=== PATIENT | female | born 1975 | race Caucasian/White ===

== ENCOUNTER 2017-01-01 15:57 | Inpatient (IN) | payer OTHER, MEDICARE ==
[~2017-01-01] VITALS: Ht 147.3 cm; Wt 44.2 kg
[2017-01-01] VITALS (7 sets, daily range): BP systolic 82–158; BP diastolic 34–106; PULSE 73–136; RESP 10–25; O2SAT 94–99
[~2017-01-01 15:57] MED LIST: HYDROMORPHONE PR; IBUP200C PO; KLO1T PO; MIRT30TA6 PO; NORT25CA PO; ONDA8TAB10 PO; POTA10TA12 PO
[2017-01-01] MEDS ORDERED: Promethazine Inj 25 MG in Dextrose 5%-Pha MIX 50 ML IV ONE (17:00)
[2017-01-01] MEDS ORDERED: HYDROmorphone 1 mg/mL Inj IVPUSH ONE (17:00)
[2017-01-01] MEDS ORDERED: Ondansetron 2 mg/mL 2 mL Inj IVPUSH ONE (17:00)
[2017-01-01 17:46] LABS: BASOPHILS % (AUTO) 0.3 % (0-3)
[2017-01-01 18:29] LABS: EOSINOPHILS % (AUTO) 0.1 % (0-5); MONOCYTES % (AUTO) 9.1 % (4-12); Mean Corpuscular Hemoglobin 28.3 pg (27.0-35.0); Mean Corpuscular Volume 77.5 fL (81-100); Platelet Count 337 bil/L (150-400)
[2017-01-01 18:54] LABS: Magnesium 2.7 mg/dL (1.6-2.6)
[2017-01-01] MEDS ORDERED: 0.9% Sodium Chloride 1,000 ML IV ONE (19:35)
--- NOTE | 2017-01-01 20:21 | ED.REPORT ---
HPI-Abd Pain F 40 and Over Date of Service Jan 01, 2017 ED Provider: Axel Little MD 41 year old female with a history of cyclic vomiting presents to the ER complaining of 15 days of hyperemesis. Patient called her hydration clinic and was referred to the ER for renal failure assessment. Associated symptoms include subjective fever, abdominal pain, and severe muscle cramping. Patient denies diarrhea. Nursing Notes Stated Complaint: VOMITING, CRAMPING Chief Complaint: General Complaint Nursing Notes Reviewed: Yes Allergies: Coded Allergies: capsaicin (Verified Allergy, Severe, Hives, 01/01/17) Scheduled Mirtazapine (Mirtazapine) 30 Mg Tablet 30 MG PO HS Nortriptyline (Nortriptyline) 25 Mg Capsule 25 MG PO QPM Scheduled PRN Clonazepam (Clonazepam) 2 Mg Tablet 2 MG PO HS PRN PRN For Sleep Hydromorphone Supp (Hydromorphone Supp) 3 Mg Supp.rect 3 MG [place] DAILY PRN PRN For Nausea Ibuprofen (Ibuprofen) 800 Mg Tablet 800 MG PO TID PRN PRN For Pain Ondansetron ODT (Ondansetron ODT) 8 Mg Tab.rapdis 8 MG PO q8 hours PRN PRN For Nausea General Time Seen by MD: 20:19 Chief Complaint Vomiting severe Hx Obtained From: Patient Arrived By: Walk-in Sudden in Onset?: No Onset Occurred: More than a week ago... (2 weeks) Symptom Duration: Since onset Progression since Onset: Unchanged Location: : Diffuse Quality: Cramping Severity: Current: Moderate Severity: Maximum: Moderate Associated with: Reports: Chills, Fever Recent Healthcare: Recent doctor visit Similar Sx Previous: Yes Past Medical History Past Medical History cyclic vomiting syndrome Past Surgical History epistaxis surgery breast augmentation Reports: Appendectomy, Smoking History Former Smoker Social History Alcohol Use: Denies alcohol use Drug Use: Denies drug use Other Social History: Ambulatory Status Independent Review of Systems +Muscle Cramping Constitutional: Reports: Fever (subjective) Respiratory: Denies: Non-productive cough, Shortness of breath GI: Reports: Abdominal pain, Nausea, Vomiting, Denies: Diarrhea Musculoskeletal: Reports: Extremity pain Complete sys rev & neg: except as marked. Physical Exam Vital Signs Vital Signs (First) Date Time Temp Pulse Resp B/P Pulse Ox O2 Delivery O2 Flow Rate FiO2 01/01/17 16:04 35.7 136 22 82/34 96 Room Air Initial VS: Reviewed Head / Eyes: Atraumatic, Normocephalic Neck: Supple, Non-tender, Full range of motion Extremities: Vascular intact, Neuro intact, No swelling, No tenderness Neurologic: Alert, Oriented, Nonfocal General/Constitutional: Awake, Alert, Well developed Appearance / Presentation: Positive: Cachectic Respiratory / Chest: Breath sounds NL, Breath sounds = bilat, No respiratory distress, No rales, No rhonchi, No wheezing, No stridor Cardiovascular: Heart rate NL, Regular rhythm, Heart sounds NL, Peripheral circulation NL Abdomen: Soft, Non-tender, No guarding, No rebound, No distention Back: Inspection NL, Non-tender, No CVA tenderness ENT: Airway patent Mouth: Positive: Mucous membranes dry Interpretation & Diagnostics Lab Results Interpretation Result Diagram: 01/01/17 1711 01/01/17 1812 Test 01/01/17 17:11 01/01/17 18:12 White Blood Count 18.9th/mm3 (3.8-10.1) Red Blood Count 6.44mil/mm3 (3.90-5.20) Hemoglobin 18.2g/dL (12.0-15.6) Hematocrit 49.9% (35.0-46.0) Mean Corpuscular Volume 77.5fL (81-100) Mean Corpuscular Hemoglobin 28.3pg (27.0-35.0) Mean Corpuscular Hemoglobin Concent 36.5% (32.0-37.0) Red Cell Distribution Width 14.6% (12.3-15.4) Platelet Count 337bil/L (150-400) Neutrophils (%) (Auto) 76.0% (40-74) Lymphocytes (%) (Auto) 13.8% (14-46) Monocytes (%) (Auto) 9.1% (4-12) Eosinophils (%) (Auto) 0.1% (0-5) Basophils (%) (Auto) 0.3% (0-3) Hold Purple Top Tube Received (Received) Hold Blue Top Tube Received (Received) Hold [place] Top Tube Received (Received) Sodium Level 128mEq/L (134-144) Potassium Level 2.8mEq/L (3.5-5.2) Chloride Level 81mEq/L (97-108) Carbon Dioxide Level 22mmol/L (18-29) Blood Urea Nitrogen 64mg/dL (6-24) Creatinine 2.94mg/dL (0.57-1.00) Estimat Glomerular Filtration Rate 25mL/min (>59) Glucose Level 121mg/dL (60-99) Calcium Level 9.1mg/dL (8.5-10.1) Magnesium Level 2.7mg/dL (1.6-2.6) Total Bilirubin 0.5mg/dL (0.0-1.2) Aspartate Amino Transf (AST/SGOT) 13U/L (0-50) Alanine Aminotransferase (ALT/SGPT) 11U/L (0-32) Alkaline Phosphatase 90U/L (25-150) Total Protein 8.4g/dL (6.4-8.4) Albumin 4.7g/dL (3.4-5.0) Lipase 39U/L (13-60) Hold [place] Top Tube Received (Received) Re-Eval/Medical Decision Source of Hx: Old records Re-Evaluation/Progress : Time of Eval: 20:25 Re-Evaluation/Progress Note: Discussed lab results and need for admission. Patient is amenable to the plan. All other questions addressed. Consultation : Referral / Consult Name: Thais Omer DO Consulted With: Hospitalist Call Returned at: 20:56 Plate Corrector: Agrees with eval, Agrees with plan, Accepts admit Counseled Regarding: Diagnosis, Lab results, Need for admission Discharge & Departure Primary Impression: Acute kidney injury Additional Impressions: Cyclic vomiting syndrome Severe dehydration Disposition: ADMITTED TO HOSPITAL Discharge Condition All VS Reviewed: Yes Condition: Stable Referrals: Perla Oh DO (PCP) Bhavesh Attestation Portions of this note were transcribed by Hector Santoyo. I, Dr. Little, personally performed the history, physical exam and medical decision-making; I reviewed and confirmed the accuracy of the information in the transcribed note. Signed by: Bhavesh Resendez, 01/01/2017 and 20:59 copies to: Perla Oh Kirk H MD Jan 01, 2017 20:20 HECTOR SANTOYO Jan 01, 2017 20:27
[2017-01-01] MEDS ORDERED: [UNRECOGNIZED DRUG - CODE] PR (20:50)
[2017-01-01] MEDS ORDERED: IBUP800T28 PO (20:50)
[2017-01-01] MEDS ORDERED: KLO2T PO (20:50)
[2017-01-01] MEDS: HYDROmorphone 1 mg/mL Inj IVPUSH PRN (21:20)
[2017-01-01] MEDS ORDERED: Ondansetron 2 mg/mL 2 mL Inj IVPUSH PRN ×2 (21:20→22:55)
[2017-01-01] MEDS ORDERED: Polyethylene Glycol (PEG) 17 Gm Powder PO PRN ×2 (21:20→22:55)
[2017-01-01] MEDS ORDERED: Alum-Mag Hydrox-Simeth 30 mL Suspension PO PRN ×2 (21:20→22:55)
[2017-01-01 22:50] LABS: Magnesium 2.7 mg/dL (1.6-2.6)
[2017-01-01] MEDS ORDERED: KCl 40 mEq/D5W 500 mL 20 MEQ in IV Premix 1 EACH IV ONE (22:55)
[2017-01-01] MEDS ORDERED: MULT-140 PO (23:26)
[2017-01-01] MEDS ORDERED: METO5SOL PO (23:26)
[2017-01-01] MEDS ORDERED: UBID200C31 PO (23:26)
[2017-01-01 23:39] LABS: APPEARANCE,URINE HAZY (CLEAR,HAZY); COLOR,URINE YELLOW (YELLOW); OCCULT BLOOD,URINE TRACE (NEGATIVE); PH,URINE 5.5 (5.0-8.0); UROBILINOGEN,URINE NORMAL (NORMAL)
[2017-01-02] MEDS: HYDROmorphone 1 mg/mL Inj IVPUSH PRN ×5 (00:14→23:06)
[2017-01-02] MEDS: 0.9% Sodium Chloride 1,000 ML IV SCH ×2 (00:15→08:48)
[2017-01-02 01:12] VITALS: BP 106/71; PULSE 65; RESP 14; O2SAT 97
--- NOTE | 2017-01-02 01:35 | PCM.HPMED ---
Subjective Date of Service Jan 01, 2017 Primary Provider: Admitting Physician: Thais Omer DO Primary Care Physician: Perla Oh DO Attending Physician: Thais Omer DO Admit Status: From the Emergency Department Chief Complaint: nausea and vomiting History of Present Illness: 41-year-old female patient with a history of cyclic vomiting syndrome presented to the ER with complaints of intractable nausea and vomiting for the past 14 days. Patient reports that over the past 14 days her nausea and vomiting has been worsening, and then when she woke up this morning it was the worst it has been. Patient is a poor historian, and does not answer most questions regarding past medical history. Patient is unable to discuss/mention any triggers for her nausea vomiting, or anything that improves or worsens her nausea and vomiting. Patient is also unable to describe her vomiting. Patient reports myalgias, nausea, vomiting, fatigue. Patient denies fevers, chills, diarrhea, abdominal pain, chest pain or shortness of breath. Patient denies any dysuria or hematuria. Patient denies any palpitations. Vital signs in the ER as follows, temperature 35.7, pulse 136, respiratory rate 22, blood pressure 82/34, pulse ox 96. Review of Systems: A limited review of systems was conducted with the patient and found to be negative except as above in the History of Present Illness. Difficult to obtain secondary to patient's mentation. Allergies Coded Allergies: capsaicin (Verified Allergy, Severe, Hives, 01/01/17) Home Medications Hydromorphone 3 mg rectal suppository Ibuprofen 800 mg 3 times a day Mirtazapine 30 mg daily at bedtime Nortriptyline 25 mg daily PMH Cyclic vomiting syndrome Epistaxis Mitochondrial disease Cluster headaches History of hypokalemia Depression and anxiety Aspiration pneumonia Surgical History Port-A-Cath placement 2016 Rhinoplasty Tonsillectomy Appendectomy Breast augmentation Dental implants IUD placement Family History Mother-breast cancer Father-diabetes Brother and sister-diabetes Family history of depression, anxiety, alcohol abuse Social History Occupation: on disability Hx Alcohol Use: No Hx Substance Use: Yes (occassional marijuana) Hx Tobacco Use: No Smoking Status: Former Smoker Living Arrangement: with Family Exam Vital Signs Vital Sign - Last Date Time Temp Pulse Resp B/P Pulse Ox O2 Delivery O2 Flow Rate FiO2 01/01/17 21:35 74 01/01/17 21:34 36.3 16 103/74 96 01/01/17 21:21 Room Air Exam General: Thin and frail female supine on med. No acute distress HEENT: Normocephalic, atraumatic. External ears without defect. Pupils equal, round, and reactive to light and accommodation. Moist conjunctivae. Oropharynx with moist mucosa. Neck: Supple with full range of motion.No lymphadenopathy Cardiovascular: Regular rate and rhythm with no murmurs, rubs, or gallops appreciated Pulmonary: Clear to auscultation bilaterally with no crackles, wheezes, or rhonchi. Normal respiratory effort with no use of accessory muscles. Abdomen: Bowel tones present. Soft, nontender, nondistended. Extremities: No clubbing, cyanosis, edema, appreciated. Skin: Port a cath on left side of chest. Normal temperature, turgor, and texture ; no rash, ulcers, or subcutaneous nodules appreciated. Psychiatric: Forgetful, tangential thinking at times but can be re-directed. Lab and Diagnostics Result Diagram: 01/01/17 1711 01/01/17 2217 X-Rays, CTs and MRIs Brain CT without contrast ordered--No results available Assessment & Plan 41-year-old female patient with a history of cyclic vomiting syndrome presented to the ER with complaints of intractable nausea and vomiting for the past 14 days. Intractable nausea and vomiting, in the setting of chronic cyclic vomiting syndrome, present on admission, ongoing -Pt has long history of cyclic vomiting syndrome, possible connected to marijuana usage -Pt has been seen by GI outpatient, do not feel consult warranted at this time. hx of multiple colonoscopies and EGDs with no concerning results. -Treating with zofran and fluids -Continue to monitor Acute kidney injury likely secondary to dehydration, present on admission, ongoing -No recorded history of CKD in outpatient records -Cr on admission 2.95, improved slightly to 2.45 with hydration -Continue with gentle hydration of NS 100mls/hr -Continue to monitor labs Acute hypokalemia likely secondary to dehydration, present on admission, ongoing -Initially 2.8 on presentation, improved to 3.3 with hydration -Started KCL IV 20meq, however this was discontinued due to concern with Cr -Consider K-Dur or IV KCL if potassium continues to decline -Labs at 2am to reassess -AM labs Acute hyponatremia likely secondary to dehydration, present on admission, ongoing -Initially 128, improved to 132 with hydration -Labs at 2am to reassess -AM labs Acute altered mental status, chronicity unknown, present on admission, ongoing -Unclear of patient's baseline mentation, no family present at bedside. -Pt was poor historian -CT brain without contrast ordered to assess for causes, s/p recent GLF -Day team to consider LP if worsening or continued confusion -Possible causes include confusion secondary to electrolyte abnormalities and dehydration -Utox ordered to assess for possible chemical explanation for the mentation -Continue to monitor closely Acute leukocytosis etiology unknown, present on admission. ongoing -WBC of 18.9, 76%pmns with no identifiable source -Pt is afebrile. -Initially tachycardic and hypotensive, but both resolved with hydration -Currently hemodynamically stable -UA pending for possible source -ABX have not been initiated, as there is no identified infection to treat currently -Continue to monitor, consider blood cultures if fever develops or if WBC worsens. PCP: Dr. Perla Oh CODE STATUS: Full code Patient is admitted under inpatient status with expected length of stay greater than 2 midnights due to severity of presenting symptoms, risk of adverse event, and complexity of treatment plan. Resuscitation Status: CPR: Attempt Resuscitation Attending Statement The patient was seen and examined together with house staff on 01/01/2017 and I agree with the history, exam and plan as outlined in the note above. copies to: Perla Oh Tara L DO Jan 01, 2017 23:52 Thais Omer DO Jan 02, 2017 04:56
[2017-01-02 06:21] LABS: BASOPHILS % (AUTO) 0.2 % (0-3); EOSINOPHILS % (AUTO) 0.6 % (0-5); MONOCYTES % (AUTO) 12.8 % (4-12); Mean Corpuscular Hemoglobin 28.1 pg (27.0-35.0); Mean Corpuscular Volume 80.5 fL (81-100); NEUTROPHILS % (AUTO) 66.9 % (40-74); Platelet Count 277 bil/L (150-400)
--- NOTE | 2017-01-02 06:26 | NUR ---
Admit/NOC Admitted pt from ED to [facility] room 3013. Pt complains of n/v for >14 days and has been feeling weak. Fluid resuscitation done in the ED and continue IVF on the floor. Upon arrival pt is generally looking weak and altered mental status. Unable to obtain specific history due to pt's mentation and poor historian. Pt denies chest pain, sob. Still complains of n/v and generalized pain on her entire body. Zofran and Dilaudid administered PRN. UA sent to the lab, IV potassium administered but discontinued via doctors order due to pt's creatinine level that is high. Hourly rounding done, and frequent monitoring due to pt being impulsivity and unstable gait when walking.
[2017-01-02] MEDS ORDERED: KCl 40 mEq/D5W 500 mL 40 MEQ in IV Premix 500 EACH IV ONE (07:35)
--- NOTE | 2017-01-02 09:15 | DRSVH ---
PROCEDURE: CT BRAIN WITHOUT CONTRAST ([id number]) INDICATIONS: confusion TECHNIQUE: Noncontrast 4.5 mm thick angled axial sections acquired from the foramen magnum to the vertex, with c oronal reformats. COMPARISON: None. FINDINGS: Image quality: Excellent. CSF spaces: Basal cisterns are patent. No extra-axial fluid collections. Ventricles are normal in size and shape. Brain: No midline shift. No intracranial masses or hemorrhage. [place]-white matter interface is norm al. Skull and face: Calvarium and visualized facial bones are intact, without suspicious lesions. Sinuses: Visualized sinuses and mastoids are clear. IMPRESSION: No acute intracranial disease process. Dictated by: Radha Gallardo MD, PhD on 01/02/2017 at 9:03 Approved by: Radha Gallardo MD, PhD on 01/02/2017 at 9:13
[2017-01-02 09:48] VITALS: BP 98/64; PULSE 53; RESP 16; O2SAT 100
[2017-01-02 10:34] VITALS: PULSE 55
--- NOTE | 2017-01-02 11:58 | NUR ---
Social Work: Initial Assessment Data: Pt is a 41 y/o female admitted for KARLY, vomiting, dehydration. Pt's PCP is Dr Oh, pt's insurance is [employer] federal employee plan, with Medicare. EMR reviewed, pt discussed in rounds. SHAFTING CLEANER met with pt at bedside, role explained. Pt sates she lives in [place] with her spouse and 6 y/o son. 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 Pt reports having AD/DPOA, SHAFTING CLEANER requested a copy for hospital. Pt states she has to notify her nurse before getting up to use the restroom. SHAFTING CLEANER will R/O possible HH need. SHAFTING CLEANER will continue to follow. Assessment: Pt who is independent at baseline. Plan: Pt will d/c home via POV with spouse or mother. SHAFTING CLEANER will R/O possible HH need. SHAFTING CLEANER will continue to follow. KYLAH Hamilton Addendum: 01/02/17 at 1201 by RAY HERNANDEZ SS Amended: Links added.
[2017-01-02 14:16] VITALS: BP 92/53; PULSE 62; RESP 16; O2SAT 98
--- NOTE | 2017-01-02 14:58 | PCM.PNMED ---
Subjective Date of Service Jan 02, 2017 Subjective reports ongoing nausea but no further vomiting today. tolerated breakfast this am. c/o abd pain Exam Vital Signs Vital Sign - Last Date Time Temp Pulse Resp B/P Pulse Ox O2 Delivery O2 Flow Rate FiO2 01/02/17 14:16 36.4 62 16 92/53 98 Room Air Intake and Output 01/01/17 01/01/17 01/02/17 Cumulative From/Thru 15:00 23:00 07:00 01/01/17 16:04 - 01/02/17 05:25 Intake Total 1000 ml 906 ml 1906 ml Output Total 975 ml 975 ml Balance 1000 ml -69 ml 931 ml Intake Oral 450 ml 450 ml IV Total 1000 ml 456 ml 1456 ml Output Urine Total 975 ml 975 ml # Bowel Movements 0 0 General: Alert, Cooperative, No Acute Distress Head: Normal Eyes: Scleral Anicteric Nose: Mucous Membr Moist/[place] Mouth: Mucous Membr Moist/[place] Neck: Supple Chest & Lungs: Chest Wall Normal, Clear to auscultation & percussion Cardiovascular: Regular Rate/Rhythm Pulses: NL carotid, radial, femoral, DP, PT Abdomen: Tender, Non-distended, Normoactive bowel tones, Soft Extremities: No cyanosis/clubbing/edma bilat Neurological: Grossly Neurologically Intact, Normal Speech IVs and Medications Medications Reviewed: Medications were reviewed in detail Lab and Diagnostics Result Diagram: 01/02/17 0545 01/02/17 0545 X-Rays, CTs and MRIs Brain CT without contrast ordered--No results available Assessment & Plan 41-year-old female patient with a history of cyclic vomiting syndrome presented to the ER with complaints of intractable nausea and vomiting for the past 14 days. # Intractable nausea and vomiting, in the setting of chronic cyclic vomiting syndrome, present on admission, improving - long history of cyclic vomiting syndrome, possible connected to marijuana usage - has been seen by GI outpatient, do not feel consult warranted at this time. hx of multiple colonoscopies and EGDs with no concerning results. - c/w supportive care # Acute kidney injury likely secondary to dehydration, present on admission, improving with IVF - Continue with gentle hydration - Continue to monitor labs # Acute hypokalemia likely secondary to dehydration, present on admission, ongoing - replete and f/u # Acute hyponatremia likely secondary to dehydration, present on admission, ongoing - c/w IVF and f/u # Acute altered mental status, chronicity unknown, present on admission, Resolved. - CT brain without contrast unremarkable - Possible causes include confusion secondary to electrolyte abnormalities and dehydration vs medication side effect. - Continue to monitor closely # Acute leukocytosis etiology unknown, present on admission. ongoing - Pt is afebrile. - Initially tachycardic and hypotensive, but both resolved with hydration - Currently hemodynamically stable - ABX have not been initiated, as there is no identified infection to treat currently - likely reactive to stress of vomiting. - f/u Dispo: 1-2 days VTE Mechanical Devices: Intermittant Pneumatic CD Resuscitation Status: CPR: Attempt Resuscitation Ajit George Jan 02, 2017 14:58
--- NOTE | 2017-01-02 16:37 | NUR ---
Pain/BM: Complaints of abdominal pain 7-8/10 on pain scale throughout shift. Administered pain medication as scheduled. On reassessment, abdominal pain decreased to 4-6/10 on pain scale. Patient states she has had no BM for "several days". Administered Senna for constipation. Discussed constipation side effects of narcotics with patient. Verbalized understanding. Encouraged po fluids, ambulation, deep breathing exercises. Patient agreed.
[2017-01-02] MEDS ORDERED: Sodium Chloride LOK Flush 10 mL Syringe IVFLUSH PRN ×2 (17:20)
[2017-01-02] MEDS ORDERED: HepLOK Flush 100 unit/mL 5 mL Inj IVFLUSH PRN (17:20)
[2017-01-02] MEDS ORDERED: 0.9% Sodium Chloride 250 ML IV SCH (17:20)
[2017-01-02] MEDS ORDERED: Alteplase (Cathflo) 1 mg/mL 2 mL Inj IVPUSH ONE (17:25)
[2017-01-02 19:15] VITALS: BP 99/63; PULSE 72; RESP 16; O2SAT 98
[2017-01-02 21:18] VITALS: BP 110/71; PULSE 63; RESP 18; O2SAT 97
[2017-01-03 01:18] VITALS: BP 106/67; PULSE 84; RESP 18; O2SAT 96
[2017-01-03] MEDS: HYDROmorphone 1 mg/mL Inj IVPUSH PRN ×2 (04:04→08:04)
[2017-01-03 05:14] VITALS: BP 106/66; PULSE 66; RESP 16; O2SAT 96
[2017-01-03 05:15] VITALS: PULSE 67
[2017-01-03 05:47] LABS: BASOPHILS % (AUTO) 0.3 % (0-3); EOSINOPHILS % (AUTO) 1.1 % (0-5); MONOCYTES % (AUTO) 10.1 % (4-12); Mean Corpuscular Hemoglobin 28.2 pg (27.0-35.0); Mean Corpuscular Volume 83.5 fL (81-100); NEUTROPHILS % (AUTO) 73.4 % (40-74); Platelet Count 166 bil/L (150-400)
[2017-01-03 05:48] VITALS: PULSE 67
--- NOTE | 2017-01-03 06:06 | NUR ---
Pain/GI Pt reports mild nausea but no vomiting, no anti-emetics required. Pt c/o / abdominal pain, IV Morphine given but not effective. Pt reported that IV Dilaudid worked better. MD called and order to switch to Dilaudid obtained and administered. Pt reports good pain relief.
[2017-01-03] MEDS ORDERED: KCl 40 mEq/D5W 500 mL 40 MEQ in IV Premix 500 EACH IV ONE (07:50)
[2017-01-03 08:00] VITALS: PULSE 59
[2017-01-03 09:39] VITALS: BP 103/67; PULSE 62; RESP 16; O2SAT 93
[2017-01-03] MEDS ORDERED: Acetaminophen PO (10:49)
--- NOTE | 2017-01-03 10:55 | PCM.DIMED ---
Discharge Instructions Date of Service Jan 03, 2017 Dates of Hospitalization Jan 01, 2017 at 21:06 Discharge Diagnosis Discharge Diagnosis # Intractable nausea and vomiting, in the setting of chronic cyclic vomiting syndrome, present on admission. Resolved - long history of cyclic vomiting syndrome, possible connected to marijuana usage # Acute kidney injury likely secondary to dehydration, present on admission. Resolved with IV fluid. # Acute hypokalemia, present on admission. Resolved # Acute hyponatremia likely secondary to dehydration, present on admission. Improved # Acute metabolic vs toxic encephalopathy with presenting altered mental status. Resolved. - Possible causes include confusion secondary to electrolyte abnormalities and dehydration vs medication side effect. # Acute leukocytosis etiology unknown, present on admission. Improving - likely reactive to stress of vomiting without any evidence of acute infection. 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 Diet Heart Healthy Activity No restrictions Call your provider Fever or Chills, Shortness of breath, Bleeding, Chest pain, Vomitting, Excessive diarrhea Patient Instructions Seek immediate medical attention if any new or worsening signs or symptoms occur. Follow-up plan 1. Followup with primary care provider in 4-10 days. Follow-up Provider: Perla Oh Masoud Jan 03, 2017 10:55
--- NOTE | 2017-01-03 11:39 | NUR ---
Social Work: Discharge Data: Pt is on day 2 of hospitalization. EMR reviewed. D/C orders are in. Pt discussed in rounds. states pt has no need for HH at this time. No further d/c planning needs at this time. WOODEN BOX MAKER will continue to follow if needs arise. Assessment: Pt who is independent at baseline. Plan: Pt will d/c home via POV today. No further d/c planning needs at this time. WOODEN BOX MAKER will continue to follow if needs arise. KYLAH Hamilton
--- NOTE | 2017-01-03 13:46 | NUR ---
Discharge Pt. discharged to home at 1230, Port o cath de-accessed by IV therapy at 1220. Tele dc'd. no peripheral IVs. Discussed discharge instructions with pt. She has no questions and has prescribed tylenol at home and does not need a prescription. Gave PO tylenol prior to discharge. Pt. states pain is tolerable. Pt. left hospital without notifying hospital staff. Left DC instruction packet and phone lopper. I called her and she said she would be able to pick both up this afternoon.
--- NOTE | 2017-01-03 16:36 | PCM.DC.MED ---
Discharge Summary Date of Service Jan 03, 2017 Dates of Hospitalization Date of Hospital Admission Jan 01, 2017 at 21:06 Date of Discharge: Jan 03, 2017 Providers: Admitting Physician: Thais Omer DO Primary Care Physician: Perla Oh DO Attending Physician: Thais Omer DO Diagnosis at Time of Discharge Diagnosis at Time of Discharge # Intractable nausea and vomiting, in the setting of chronic cyclic vomiting syndrome, present on admission. Resolved - long history of cyclic vomiting syndrome, possible connected to marijuana usage # Acute kidney injury likely secondary to dehydration, present on admission. Resolved with IV fluid. # Acute hypokalemia, present on admission. Resolved # Acute hyponatremia likely secondary to dehydration, present on admission. Improved # Acute metabolic vs toxic encephalopathy with presenting altered mental status. Resolved. - Possible causes include confusion secondary to electrolyte abnormalities and dehydration vs medication side effect. # Acute leukocytosis etiology unknown, present on admission. Improving - likely reactive to stress of vomiting without any evidence of acute infection. 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 Procedures XRay, CTs & MRIs Date of Service: 01/01/17 9841 PROCEDURE: CT BRAIN WITHOUT CONTRAST ([id number]) INDICATIONS: confusion TECHNIQUE: Noncontrast 4.5 mm thick angled axial sections acquired from the foramen magnum to the vertex, with coronal reformats. COMPARISON: None. FINDINGS: Image quality: Excellent. CSF spaces: Basal cisterns are patent. No extra-axial fluid collections. Ventricles are normal in size and shape. Brain: No midline shift. No intracranial masses or hemorrhage. [place]-white matter interface is normal. Skull and face: Calvarium and visualized facial bones are intact, without suspicious lesions. Sinuses: Visualized sinuses and mastoids are clear. IMPRESSION: No acute intracranial disease process. Dictated by: Radha Gallardo MD, PhD on 01/02/2017 at 9:03 Approved by: Radha Gallardo MD, PhD on 01/02/2017 at 9:13 Brief History As noted in H&P by Dr. Harris: 41-year-old female patient with a history of cyclic vomiting syndrome presented to the ER with complaints of intractable nausea and vomiting for the past 14 days. Patient reports that over the past 14 days her nausea and vomiting has been worsening, and then when she woke up this morning it was the worst it has been. Patient is a poor historian, and does not answer most questions regarding past medical history. Patient is unable to discuss/mention any triggers for her nausea vomiting, or anything that improves or worsens her nausea and vomiting. Patient is also unable to describe her vomiting. Patient reports myalgias, nausea, vomiting, fatigue. Patient denies fevers, chills, diarrhea, abdominal pain, chest pain or shortness of breath. Patient denies any dysuria or hematuria. Patient denies any palpitations. Vital signs in the ER as follows, temperature 35.7, pulse 136, respiratory rate 22, blood pressure 82/34, pulse ox 96. Hospital Course # Intractable nausea and vomiting, in the setting of chronic cyclic vomiting syndrome, present on admission, Resolved - long history of cyclic vomiting syndrome, possible connected to marijuana usage - has been seen by GI outpatient, do not feel consult warranted at this time. hx of multiple colonoscopies and EGDs with no concerning results. # Acute kidney injury likely secondary to dehydration, present on admission, improving with IVF - Continue with gentle hydration - Continue to monitor labs # Acute hypokalemia likely secondary to dehydration, present on admission, Resolved # Acute hyponatremia likely secondary to dehydration, present on admission, Improved # Acute altered mental status, chronicity unknown, present on admission, Resolved. - CT brain without contrast unremarkable - Possible causes include confusion secondary to electrolyte abnormalities and dehydration vs medication side effect. # Acute leukocytosis etiology unknown, present on admission. Improved - Pt is afebrile. - Initially tachycardic and hypotensive, but both resolved with hydration - Currently hemodynamically stable - ABX have not been initiated, as there is no identified infection to treat currently - likely reactive to stress of vomiting. by day of d/c lungs CTA bilat. Abdomen soft, nd, +bs. patient reports tolerating general diet without nausea or vomiting and requesting d/c home. Exam Vital Signs (Last) Date Time Temp Pulse Resp B/P Pulse Ox O2 Delivery O2 Flow Rate FiO2 01/03/17 09:39 36.6 62 16 103/67 93 Room Air Test 01/01/17 17:11 01/01/17 18:12 01/01/17 23:31 01/02/17 05:45 Hold Purple Top Tube Received (Received) Hold Blue Top Tube Received (Received) Hold [place] Top Tube Received (Received) Lipase 39U/L (13-60) Hold [place] Top Tube Received (Received) Urine Color Yellow (YELLOW) Urine Appearance Hazy (CLEAR,HAZY) Urine pH 5.5 (5.0-8.0) Urine Specific [place] 1.030 (1.003-1.035) Urine Protein 30mg/dL (NEG,TRACE) Urine Glucose (UA) Negativemg/dL (NEGATIVE) Urine Ketones Negativemg/dL (NEGATIVE) Urine Occult Blood Trace (NEGATIVE) Urine Nitrite Negative (NEGATIVE) Urine Bilirubin Negative (NEGATIVE) Urine Urobilinogen Normalmg/dL (NORMAL) Urine Leukocyte Esterase Negative (NEGATIVE) Urine RBC 0-2/hpf (0-2) Urine WBC 0-5/hpf (0-5) Urine Epithelial Cells Few/hpf (NONE-MOD) Urine Crystals Amorphous urates (NONE Urine Bacteria Few/hpf (NONE-FEW) Urine Hyaline Casts >20/lpf (NONE) Urine Granular Casts None seen (NONE SEEN) Urine Waxy Casts None seen (NONE SEEN) Urine Red Blood Cell Casts None seen (NONE SEEN) Urine White Blood Cell Casts None seen (NONE SEEN) Urine Mucus Present (None Seen) Urine Trichomonas None seen (NONE SEEN) Urine Yeast None (NONE SEEN) Urinalysis Comment None Urine Culture Reflexed Not indicated Urine Opiates Screen Negative Urine Methadone Screen Negative Urine Barbiturates Screen Negative Urine Amphetamines Screen Negative Urine Benzodiazepines Screen Positive Urine Cocaine Metabolite Screen Negative Urine Cannabinoids Screen Positive Total Bilirubin 0.5mg/dL (0.0-1.2) Aspartate Amino Transf (AST/SGOT) 13U/L (0-50) Alanine Aminotransferase (ALT/SGPT) 9U/L (0-32) Alkaline Phosphatase 66U/L (25-150) Total Protein 6.1g/dL (6.4-8.4) Albumin 3.4g/dL (3.4-5.0) Test 01/03/17 05:25 White Blood Count 14.0th/mm3 (3.8-10.1) Red Blood Count 4.25mil/mm3 (3.90-5.20) Hemoglobin 12.0g/dL (12.0-15.6) Hematocrit 35.5% (35.0-46.0) Mean Corpuscular Volume 83.5fL (81-100) Mean Corpuscular Hemoglobin 28.2pg (27.0-35.0) Mean Corpuscular Hemoglobin Concent 33.8% (32.0-37.0) Red Cell Distribution Width 14.3% (12.3-15.4) Platelet Count 166bil/L (150-400) Neutrophils (%) (Auto) 73.4% (40-74) Lymphocytes (%) (Auto) 14.7% (14-46) Monocytes (%) (Auto) 10.1% (4-12) Eosinophils (%) (Auto) 1.1% (0-5) Basophils (%) (Auto) 0.3% (0-3) Sodium Level 131mEq/L (134-144) Potassium Level 3.6mEq/L (3.5-5.2) Chloride Level 99mEq/L (97-108) Carbon Dioxide Level 23mmol/L (18-29) Blood Urea Nitrogen 22mg/dL (6-24) Creatinine 0.56mg/dL (0.57-1.00) Estimat Glomerular Filtration Rate 169mL/min (>59) Glucose Level 80mg/dL (60-99) Calcium Level 7.5mg/dL (8.5-10.1) Magnesium Level 2.0mg/dL (1.6-2.6) Procalcitonin 0.12ng/mL (0.00-0.08) Discharge Medications Discharge Medications Mirtazapine (Mirtazapine) 30 Mg Tablet 30 MG PO HS (Reported) Multivit with Calcium,Iron,Min (Therapeutic M) 1 Each Tablet 1 EACH PO DAILY ( Reported) Nortriptyline (Nortriptyline) 25 Mg Capsule 25 MG PO HS (Reported) Ondansetron ODT (Ondansetron ODT) 8 Mg Tab.rapdis 8 MG PO BID (Reported) Ubidecarenone (Coenzyme Q-10) 200 Mg Capsule 200 MG PO DAILY (Reported) As needed ([Acetaminophen]) 325 MG TABLET 650 MG PO Q4H PRN PRN For Pain Prescribed by: GIDEON SIMS MD Clonazepam (Clonazepam) 2 Mg Tablet 2 MG PO HS PRN PRN For Sleep (Reported) Hydromorphone Supp (Hydromorphone Supp) 3 Mg Supp.rect 3 MG [place] DAILY PRN PRN For Nausea (Reported) May use up to 3x/month for nausea Ibuprofen (Ibuprofen) 800 Mg Tablet 800 MG PO TID PRN PRN For Pain (Reported) Takes only 1x/month, not often Metoclopramide (Metoclopramide) 10 Mg/10 Ml Solution 10 MG PO QID PRN PRN For Nausea (Reported) Followup Plan Disposition: Home Follow-up plan 1. Followup with primary care provider in 4-10 days. Discharge Diet: Heart Healthy Discharge Activity: No restrictions Patient Instructions Seek immediate medical attention if any new or worsening signs or symptoms occur. Follow-up Provider: Perla Oh DO Time spent 30 min copies to: Perla Oh Masoud Jan 03, 2017 16:36
== END 2017-01-03 12:40 | disposition home or self-care (01) | DRG 102 ==
LOC: SED 15:57 → MPC 21:06
PROVIDERS: ADMIT Internal Medicine; ATTEND Internal Medicine
DX: G43.A1 Cyclical vomiting, in migraine, intractable (principal); G93.41 Metabolic encephalopathy; G92 Toxic encephalopathy; N17.9 Acute kidney failure, unspecified; E87.1 Hypo-osmolality and hyponatremia; E86.0 Dehydration; E87.6 Hypokalemia; F12.988 Cannabis use, unspecified with other cannabis-induced disorder; T50.905A Adverse effect of unspecified drugs, medicaments and biological substances, initial encounter

== ENCOUNTER 2017-01-05 06:09 | Emergency (ER) | payer OTHER, MEDICARE ==
[~2017-01-05] VITALS: Ht 147.3 cm; Wt 45.5 kg
[~2017-01-05 06:09] MED LIST changes: +Acetaminophen PO; -HYDROMORPHONE PR; -IBUP200C PO; +IBUP800T28 PO; -KLO1T PO; +KLO2T PO; +METO5SOL PO; +MULT-140 PO; -POTA10TA12 PO; +UBID200C31 PO; +[UNRECOGNIZED DRUG - CODE] PR
[2017-01-05 06:13] VITALS: BP 117/83; PULSE 97; RESP 16; O2SAT 96
--- NOTE | 2017-01-05 06:35 | ED.REPORT ---
HPI-Abd Pain F 40 and Over Date of Service Jan 05, 2017 ED Provider: Mark Palm MD Patient is a 41 year old female with a history of cyclic vomiting who presents to the ED complaining of abdominal pain onset yesterday morning. Associated symptoms include nausea, vomiting, dysuria, and dizziness. She last vomited an hour ago. She denies diarrhea, fever, cough, chest pain, or any other symptoms. She was discharged from the hospital 2 days ago after being admitted for cyclic vomiting and acute kidney injury. Nursing Notes Stated Complaint: DIZZY/ABDOMINAL PAIN Chief Complaint: Female Abdominal Pain Nursing Notes Reviewed: Yes Allergies: Coded Allergies: capsaicin (Verified Allergy, Severe, Hives, 01/01/17) Scheduled Mirtazapine (Mirtazapine) 30 Mg Tablet 30 MG PO HS Multivit with Calcium,Iron,Min (Therapeutic M) 1 Each Tablet 1 EACH PO DAILY Nortriptyline (Nortriptyline) 25 Mg Capsule 25 MG PO HS Ondansetron ODT (Ondansetron ODT) 8 Mg Tab.rapdis 8 MG PO BID Ubidecarenone (Coenzyme Q-10) 200 Mg Capsule 200 MG PO DAILY Scheduled PRN ([Acetaminophen]) 325 MG TABLET 650 MG PO Q4H PRN PRN For Pain Clonazepam (Clonazepam) 2 Mg Tablet 2 MG PO HS PRN PRN For Sleep Hydromorphone Supp (Hydromorphone Supp) 3 Mg Supp.rect 3 MG [place] DAILY PRN PRN For Nausea May use up to 3x/month for nausea Ibuprofen (Ibuprofen) 800 Mg Tablet 800 MG PO TID PRN PRN For Pain Takes only 1x/month, not often Metoclopramide (Metoclopramide) 10 Mg/10 Ml Solution 10 MG PO QID PRN PRN For Nausea General Time Seen by MD: 06:26 Chief Complaint Abdominal pain Hx Obtained From: Patient Arrived By: Walk-in Sudden in Onset?: Yes Onset Occurred: Yesterday Recent Healthcare: Recent hospitalization Similar Sx Previous: Yes Risk Factors )( AAA Risk Stratification No Hypertension, No Smoking Risk factors reviewed Past Medical History Past Medical History Notes: Recently prescribed more clonazepam and Dilaudid suppositories Past Medical History cyclic vomiting syndrome Past Surgical History epistaxis surgery breast augmentation Picc lines Reports: Appendectomy, , Tonsillectomy Smoking History Former Smoker Social History Alcohol Use: Denies alcohol use Drug Use: THC Other Social History: Ambulatory Status Independent Review of Systems Constitutional: Denies: Fever Respiratory: Denies: Non-productive cough Cardiovascular: Denies: Chest pain GI: Reports: Abdominal pain, Nausea, Vomiting, Denies: Diarrhea Female: Reports: Dysuria Complete sys rev & neg: except as marked. Physical Exam Vital Signs Vital Signs (First) Date Time Temp Pulse Resp B/P Pulse Ox O2 Delivery O2 Flow Rate FiO2 01/05/17 06:13 37.3 97 16 117/83 96 Room Air Initial VS: Reviewed Head / Eyes: Atraumatic, Normocephalic Skin: Warm, Dry Neurologic: Alert, Oriented, Nonfocal Psychiatric: Mood/affect normal, Behavior normal, Normal thought content General/Constitutional: Awake, Alert, Well developed Respiratory / Chest: Breath sounds NL, Breath sounds = bilat, No respiratory distress Cardiovascular: Heart rate NL, Regular rhythm Abdomen: No guarding, No rebound Tenderness/Guarding/Rebound: Positive: Tender diffuse Back: Inspection NL Interpretation & Diagnostics Lab Results Interpretation Result Diagram: 01/05/17 0643 01/05/17 0643 Test 01/05/17 06:43 White Blood Count 16.6th/mm3 (3.8-10.1) Red Blood Count 4.48mil/mm3 (3.90-5.20) Hemoglobin 12.7g/dL (12.0-15.6) Hematocrit 37.3% (35.0-46.0) Mean Corpuscular Volume 83.3fL (81-100) Mean Corpuscular Hemoglobin 28.3pg (27.0-35.0) Mean Corpuscular Hemoglobin Concent 34.0% (32.0-37.0) Red Cell Distribution Width 14.3% (12.3-15.4) Platelet Count 173bil/L (150-400) Neutrophils (%) (Auto) 78.4% (40-74) Lymphocytes (%) (Auto) 9.8% (14-46) Monocytes (%) (Auto) 11.1% (4-12) Eosinophils (%) (Auto) 0.1% (0-5) Basophils (%) (Auto) 0.2% (0-3) Sodium Level 137mEq/L (134-144) Potassium Level 3.7mEq/L (3.5-5.2) Chloride Level 95mEq/L (97-108) Carbon Dioxide Level 25mmol/L (18-29) Blood Urea Nitrogen 11mg/dL (6-24) Creatinine 0.63mg/dL (0.57-1.00) Estimat Glomerular Filtration Rate 148mL/min (>59) Glucose Level 104mg/dL (60-99) Calcium Level 8.8mg/dL (8.5-10.1) Magnesium Level 1.8mg/dL (1.6-2.6) Total Bilirubin 0.4mg/dL (0.0-1.2) Aspartate Amino Transf (AST/SGOT) 13U/L (0-50) Alanine Aminotransferase (ALT/SGPT) 9U/L (0-32) Alkaline Phosphatase 68U/L (25-150) Total Protein 6.1g/dL (6.4-8.4) Albumin 3.3g/dL (3.4-5.0) Lipase 59U/L (13-60) Re-Eval/Medical Decision Med Decision/Clinical Course 41-year-old female history of cyclic vomiting syndrome thought to be possibly due to marijuana discharged 2 days ago after admission for cyclic vomiting syndrome, acute kidney injury and electrolyte abnormalities. Today with vomiting 1 hour ago and abdominal pain diffuse. Abdomen is soft with no rebound or guarding. Her labs are normal other than leukocytosis which is decreased from previous. Her electrolytes and her creatinine kidney function today are normal. She was given Phenergan and Zofran and her symptoms improved significantly. She will be discharged home with plan to take her home medications for pain and nausea. Re-Evaluation/Progress : Time of Eval: 09:20 )( Re-Eval Abdomen: Soft Patient Status: Condition improved Re-Evaluation/Progress Note: Rechecked patient. Her symptoms have resolved. Discussed plan for discharge. Patient understands and agrees with plan. All questions addressed at this time. Counseled Regarding: Diagnosis, Lab results, Need for follow-up, When/why to return to ED Discharge & Departure Primary Impression: Abdominal pain Additional Impression: Cyclic vomiting syndrome Disposition: Home Discharge Condition All VS Reviewed: Yes Condition: Improved Additional Instructions: Thank you for entrusting us with your care today. Your lab results are all normal. I have prescribed you suppositories to help with your pain. Please take as prescribed. Take your Zofran as needed for nausea. Drink clear fluids and progress your diet as tolerated. Please follow up with your primary care provider. Return to the emergency department if you experience new or worsening symptoms. Referrals: Perla Oh DO (PCP) Scribe Attestation Portions of this note were transcribed by Ariella Adams. I, Dr. Palm personally performed the history, physical exam and medical decision-making; I reviewed and confirmed the accuracy of the information in the transcribed note. Signed by: Ariella Adams 01/05/17, 0928 copies to: Perla Oh Ben M MD Jan 05, 2017 06:35 ARIELLA ADAMS Jan 05, 2017 06:46
[2017-01-05] MEDS ORDERED: 0.9% Sodium Chloride 1,000 ML IV ONE (06:43)
[2017-01-05] MEDS ORDERED: Ondansetron 2 mg/mL 2 mL Inj IVPUSH PRN (06:45)
[2017-01-05] MEDS ORDERED: HYDROmorphone 1 mg/mL Inj IVPUSH ONE (07:35)
[2017-01-05] MEDS ORDERED: Promethazine Inj 25 MG in Dextrose 5%-Pha MIX 50 ML IV ONE (07:35)
[2017-01-05 07:41] LABS: BASOPHILS % (AUTO) 0.2 % (0-3); EOSINOPHILS % (AUTO) 0.1 % (0-5); MONOCYTES % (AUTO) 11.1 % (4-12); Mean Corpuscular Hemoglobin 28.3 pg (27.0-35.0); Mean Corpuscular Volume 83.3 fL (81-100); NEUTROPHILS % (AUTO) 78.4 % (40-74); Platelet Count 173 bil/L (150-400)
[2017-01-05 08:04] LABS: Magnesium 1.8 mg/dL (1.6-2.6)
== END 2017-01-05 09:45 | disposition home or self-care (01) ==
LOC: SED 06:09
DX: R10.9 Unspecified abdominal pain (principal); G43.A0 Cyclical vomiting, in migraine, not intractable; Z87.891 Personal history of nicotine dependence; Z88.8 Allergy status to other drugs, medicaments and biological substances
CPT/HCPCS: 36415; 80053; 83690; 83735; 85025; 96361; 96365; 96375; 99284; J1170; J2405; J2550; J7030

== ENCOUNTER 2017-01-12 12:18 | Emergency (ER) | payer OTHER, MEDICARE ==
[~2017-01-12] VITALS: Ht 147.3 cm; Wt 44.2 kg
[2017-01-12 12:23] VITALS: BP 143/106; PULSE 113; RESP 14; O2SAT 96
[2017-01-12] MEDS ORDERED: 0.9% Sodium Chloride 1,000 ML IV ONE ×2 (13:10)
[2017-01-12] MEDS ORDERED: Promethazine Inj 25 MG in Dextrose 5%-Pha MIX 50 ML IV ONE (13:15)
[2017-01-12] MEDS ORDERED: Ondansetron 2 mg/mL 2 mL Inj IVPUSH ONE ×2 (13:15→18:10)
--- NOTE | 2017-01-12 13:39 | ED.REPORT ---
HPI-NVD Date of Service Jan 12, 2017 ED Provider: Amarjit Owens MD Patient is a 41 year old female who presents to the ED complaining of a flare up of her cyclic vomiting onset one week ago. Associated symptoms include dizziness and weakness. She slipped down a few stairs today due to her weakness. She denies headache, diarrhea, fever, or any other symptoms. She was discharged from the hospital just over a week ago for similar symptoms. Per partner, she has a month to a month and a half long flare up of symptoms ~2x a year. Upon discharge she was given pain and nausea suppositories. Patient is a poor historian and her partner answers the majority of questions for her. Nursing Notes Stated Complaint: DIZZINESS Chief Complaint: Female Abdominal Pain Nursing Notes Reviewed: Yes ([place] not reconciled) Allergies: Coded Allergies: capsaicin (Verified Allergy, Severe, Hives, 01/01/17) Scheduled Mirtazapine (Mirtazapine) 30 Mg Tablet 30 MG PO HS Multivit with Calcium,Iron,Min (Therapeutic M) 1 Each Tablet 1 EACH PO DAILY Nortriptyline (Nortriptyline) 25 Mg Capsule 25 MG PO HS Ondansetron ODT (Ondansetron ODT) 8 Mg Tab.rapdis 8 MG PO BID Ubidecarenone (Coenzyme Q-10) 200 Mg Capsule 200 MG PO DAILY Scheduled PRN ([Acetaminophen]) 325 MG TABLET 650 MG PO Q4H PRN PRN For Pain Clonazepam (Clonazepam) 2 Mg Tablet 2 MG PO HS PRN PRN For Sleep Hydromorphone Supp (Hydromorphone Supp) 3 Mg Supp.rect 3 MG [place] DAILY PRN PRN For Nausea May use up to 3x/month for nausea Ibuprofen (Ibuprofen) 800 Mg Tablet 800 MG PO TID PRN PRN For Pain Takes only 1x/month, not often Metoclopramide (Metoclopramide) 10 Mg/10 Ml Solution 10 MG PO QID PRN PRN For Nausea General Time Seen by MD: 13:08 Chief Complaint Vomiting Hx Obtained From: Patient, Spouse Arrived By: Walk-in Recent Healthcare: Recent hospitalization Similar Sx Previous: Yes Past Medical History Past Medical History Notes: Last ED visit 01/05/2017 Last admission Jan 01 through January 03, 2017 Past Medical History cyclic vomiting syndrome (Patient with cachexia, port-a-cath) 9 is indicated the patient's been seen by GI, has undergone multiple EGDs colonoscopies, no dangerous or PATHOLOGY IDENTIFIED) History of acute kidney injury secondary to dehydration on admission December 2016 History of hypokalemia secondary to ongoing vomiting on admission December 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 Alcohol Use: Denies alcohol use Drug Use: THC Other Social History: Ambulatory Status Independent Review of Systems Constitutional: Reports: Weakness - generalized, Denies: Fever GI: Reports: Nausea, Vomiting, Denies: Diarrhea Neurologic: Reports: Dizziness, Denies: Headache Complete sys rev & neg: except as marked. Physical Exam Initial Vital Signs Vital Signs (First) Date Time Temp Pulse Resp B/P Pulse Ox O2 Delivery O2 Flow Rate FiO2 01/12/17 12:23 36.6 113 14 143/106 96 Room Air Initial VS: Reviewed, Vital signs abnormal (tachycardia) Head / Eyes: Atraumatic, Normocephalic Neck: Supple Skin: Warm, Dry Neurologic: Alert, Oriented, Nonfocal Psychiatric: Mood/affect normal, Behavior normal, Normal thought content General/Constitutional: Awake, Alert, Well developed, Not toxic appearing Appearance / Presentation: Positive: Cachectic, Frail Hovering partner Weak No trauma Not in withdrawal Abdomen: Soft, Non-tender Respiratory / Chest: No respiratory distress Port on L chest Heart Rate / Rhythm: Positive: Tachycardia Interpretation & Diagnostics Lab Results Interpretation Result Diagram: 01/12/17 1411 Test 01/12/17 14:11 White Blood Count 11.9th/mm3 (3.8-10.1) Red Blood Count 4.98mil/mm3 (3.90-5.20) Hemoglobin 14.0g/dL (12.0-15.6) Hematocrit 42.2% (35.0-46.0) Mean Corpuscular Volume 84.7fL (81-100) Mean Corpuscular Hemoglobin 28.1pg (27.0-35.0) Mean Corpuscular Hemoglobin Concent 33.2% (32.0-37.0) Red Cell Distribution Width 14.0% (12.3-15.4) Platelet Count 259bil/L (150-400) Neutrophils (%) (Auto) 72.0% (40-74) Lymphocytes (%) (Auto) 16.8% (14-46) Monocytes (%) (Auto) 8.0% (4-12) Eosinophils (%) (Auto) 2.0% (0-5) Basophils (%) (Auto) 0.7% (0-3) Human Chorionic Gonadotropin, Qual Negative (Negative) Hold [place] Top Tube Received (Received) Lab Results Interpretation: CBC mild leukocytosis, history of same Re-Eval/Medical Decision Med Decision/Clinical Course This is a 41-year-old female who history of chronic severe cyclic vomiting syndrome with a history of multiple hospitalizations, cachexia, and a Port-A- Cath who resents complaining of an exacerbation of her chronic symptoms. She and her provide the history and reports this is simply the same symptoms she has had before, but she has had vomiting, feels dehydrated, and has her usual pain and nausea and feels too weak to get up. The patient is cachectic, fatigued and dehydrated. She does not have clinical peritonitis, abdominal tenderness, fever, or clinical findings on exam indicating a red flag for noted need for abdominal imaging. Her Port-A-Cath has been accessed, fluids, nausea, and pain medicines are being administered. At time of shift change the patient still is not complete her fluid boluses, she remains symptomatic and is being turned over to Dr. Arnett for further management Source of Hx: Old records Discharge & Departure Shift Change Sign-Out Patient Care Transferred: Yes Discussed Complaint(s): Yes Laboratory Evaluation: Ordered, not yet done Impression: Primary Impression: Intractable vomiting with nausea Vomiting type: cyclical vomiting Qualified Code: G43.A1 - Cyclical vomiting , intractable Additional Impressions: Cyclic vomiting syndrome Vomiting Intractability: unspecified Nausea presence: with nausea Qualified Code: G43.A0 - Cyclical vomiting, not intractable Dehydration Referrals: Perla Oh DO (PCP) Care Transferred to: Dr. Arnett Care Transferred at: 15:03 Amarjit Owens MD Jan 12, 2017 13:39 ARIELLA YAP Jan 12, 2017 13:46
[2017-01-12] MEDS: HYDROmorphone 1 mg/mL Inj IVPUSH PRN ×4 (13:48→18:25)
[2017-01-12 14:22] LABS: BASOPHILS % (AUTO) 0.7 % (0-3); Mean Corpuscular Hemoglobin 28.1 pg (27.0-35.0); Mean Corpuscular Volume 84.7 fL (81-100); Platelet Count 259 bil/L (150-400)
[2017-01-12 15:02] LABS: Lipase 43 U/L (13-60)
[2017-01-12 15:51] VITALS: BP 97/53; PULSE 71; O2SAT 93
[2017-01-12 16:29] LABS: APPEARANCE,URINE HAZY (CLEAR,HAZY); COLOR,URINE YELLOW (YELLOW); PH,URINE 5.5 (5.0-8.0)
[2017-01-12 16:30] LABS: OCCULT BLOOD,URINE NEGATIVE (NEGATIVE); UROBILINOGEN,URINE NORMAL (NORMAL)
[2017-01-12 18:39] VITALS: BP 94/51; PULSE 75; O2SAT 99
[2017-01-12 18:42] VITALS: BP 94/51; PULSE 75; O2SAT 99
[2017-01-12] MEDS ORDERED: HepLOK Flush 10 Unit/mL 10 mL Inj IVFLUSH ONE (18:50)
[2017-01-12] MEDS ORDERED: HepLOK Flush 100 unit/mL 5 mL Inj ONE (18:55)
== END 2017-01-12 19:04 | disposition home or self-care (01) ==
LOC: SED 12:18
DX: G43.A0 Cyclical vomiting, in migraine, not intractable (principal); E86.0 Dehydration; R64 Cachexia; Z95.9 Presence of cardiac and vascular implant and graft, unspecified; Z87.891 Personal history of nicotine dependence; Z88.8 Allergy status to other drugs, medicaments and biological substances
CPT/HCPCS: 36415; 80053; 81000; 83690; 83735; 84703; 85025; 96361; 96374; 96375; 96376; 99285; J1170; J1200; J1642; J2405; J2550; J7030

== ENCOUNTER 2017-01-30 23:12 | Emergency (ER) | payer OTHER, MEDICARE ==
[~2017-01-30] VITALS: Ht 149.9 cm; Wt 50.0 kg
[2017-01-30 23:15] VITALS: BP 119/88; PULSE 111; RESP 16; O2SAT 98
--- NOTE | 2017-01-31 00:17 | ED.REPORT ---
HPI-Abd Pain F 40 and Over Date of Service Jan 31, 2017 ED Provider: Tae Hidalgo MD 41 year old female with a history of cyclic vomiting syndrome presents to the ER complaining of vomiting and abdominal pain. Associated symptoms include dizziness and dehydration. No urine output for 24 hours. She states that she was in renal failure a week ago, seen at by GI specialist and admitted for similar symptoms. Patient denies hematemesis. Follow-up appointment with GI specialist is scheduled for tomorrow. Nursing Notes Stated Complaint: POSS DEHYDRATION,DIZZY Chief Complaint: General Complaint Nursing Notes Reviewed: Yes Allergies: Coded Allergies: capsaicin (Verified Allergy, Severe, Hives, 01/01/17) Scheduled Mirtazapine (Mirtazapine) 30 Mg Tablet 30 MG PO HS Multivit with Calcium,Iron,Min (Therapeutic M) 1 Each Tablet 1 EACH PO DAILY Nortriptyline (Nortriptyline) 25 Mg Capsule 25 MG PO HS Ondansetron ODT (Ondansetron ODT) 8 Mg Tab.rapdis 8 MG PO BID Ubidecarenone (Coenzyme Q-10) 200 Mg Capsule 200 MG PO DAILY Scheduled PRN ([Acetaminophen]) 325 MG TABLET 650 MG PO Q4H PRN PRN For Pain Clonazepam (Clonazepam) 2 Mg Tablet 2 MG PO HS PRN PRN For Sleep Hydromorphone Supp (Hydromorphone Supp) 3 Mg Supp.rect 3 MG [place] DAILY PRN PRN For Nausea May use up to 3x/month for nausea Ibuprofen (Ibuprofen) 800 Mg Tablet 800 MG PO TID PRN PRN For Pain Takes only 1x/month, not often Metoclopramide (Metoclopramide) 10 Mg/10 Ml Solution 10 MG PO QID PRN PRN For Nausea General Time Seen by MD: 00:16 Chief Complaint Vomiting moderate Hx Obtained From: Patient Arrived By: Walk-in Sudden in Onset?: No Onset Occurred: 1 week ago Location: : Diffuse Quality: Painful Severity: Current: Moderate Severity: Maximum: Moderate Recent Healthcare: Recent doctor visit, Recent hospitalization Similar Sx Previous: Yes Past Medical History Past Medical History Notes: Last ED visit 01/05/2017 Last admission Jan 01 through January 03, 2017 Past Medical History cyclic vomiting syndrome (Patient with cachexia, port-a-cath) 9 is indicated the patient's been seen by GI, has undergone multiple EGDs colonoscopies, no dangerous or PATHOLOGY IDENTIFIED) History of acute kidney injury secondary to dehydration on admission December 2016 History of hypokalemia secondary to ongoing vomiting on admission December 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 Alcohol Use: Denies alcohol use Drug Use: THC Other Social History: Ambulatory Status Independent Review of Systems +Dehydration Constitutional: Denies: Chills, Fever Respiratory: Denies: Shortness of breath GI: Reports: Abdominal pain, Nausea, Vomiting, Denies: Hematemesis Female: Reports: Urination decreased Complete sys rev & neg: except as marked. Neurologic: Reports: Dizziness Physical Exam Vital Signs Vital Signs (First) Date Time Temp Pulse Resp B/P Pulse Ox O2 Delivery O2 Flow Rate FiO2 01/30/17 23:15 36.1 111 16 119/88 98 Room Air Initial VS: Reviewed Head / Eyes: Atraumatic, Normocephalic Neck: Supple, Non-tender, Full range of motion Extremities: Vascular intact, Neuro intact, No swelling, No tenderness Skin: Warm, Dry, No cyanosis Neurologic: Alert, Oriented, Nonfocal General/Constitutional: Awake, Alert, Well developed Appearance / Presentation: Positive: Cachectic, Frail Respiratory / Chest: Breath sounds NL, Breath sounds = bilat, No respiratory distress, No rales, No rhonchi, No wheezing, No stridor Cardiovascular: Heart rate NL, Regular rhythm, Heart sounds NL, Peripheral circulation NL Abdomen: Soft, No guarding, No rebound, No distention Tenderness/Guarding/Rebound: Positive: Tender diffuse Back: Inspection NL, Non-tender, No CVA tenderness ENT: Airway patent Mouth: Positive: Mucous membranes dry Interpretation & Diagnostics Lab Results Interpretation Result Diagram: 01/31/17 0100 01/31/17 0100 Test 01/31/17 01:00 01/31/17 03:00 White Blood Count 13.3th/mm3 (3.8-10.1) Red Blood Count 5.13mil/mm3 (3.90-5.20) Hemoglobin 14.7g/dL (12.0-15.6) Hematocrit 43.5% (35.0-46.0) Mean Corpuscular Volume 84.8fL (81-100) Mean Corpuscular Hemoglobin 28.7pg (27.0-35.0) Mean Corpuscular Hemoglobin Concent 33.8% (32.0-37.0) Red Cell Distribution Width 15.1% (12.3-15.4) Platelet Count 256bil/L (150-400) Neutrophils (%) (Auto) 59.8% (40-74) Lymphocytes (%) (Auto) 23.9% (14-46) Monocytes (%) (Auto) 9.5% (4-12) Eosinophils (%) (Auto) 5.6% (0-5) Basophils (%) (Auto) 0.8% (0-3) Prothrombin Time 11.0sec (8.1-12.5) Prothromb Time International Ratio 1.03ratio Sodium Level 138mEq/L (134-144) Potassium Level 3.3mEq/L (3.5-5.2) Chloride Level 96mEq/L (97-108) Carbon Dioxide Level 22mmol/L (18-29) Blood Urea Nitrogen 36mg/dL (6-24) Creatinine 1.57mg/dL (0.57-1.00) Estimat Glomerular Filtration Rate 52mL/min (>59) Glucose Level 86mg/dL (60-99) Lactic Acid Level 0.9mmol/L (0.4-2.0) Calcium Level 9.6mg/dL (8.5-10.1) Magnesium Level 2.2mg/dL (1.6-2.6) Total Bilirubin 0.2mg/dL (0.0-1.2) Aspartate Amino Transf (AST/SGOT) 15U/L (0-50) Alanine Aminotransferase (ALT/SGPT) 14U/L (0-32) Alkaline Phosphatase 91U/L (25-150) Total Protein 8.0g/dL (6.4-8.4) Albumin 4.4g/dL (3.4-5.0) Lipase 74U/L (13-60) Urine Color Dark yellow (YELLOW) Urine Appearance Cloudy (CLEAR,HAZY) Urine pH 5.5 (5.0-8.0) Urine Specific [place] 1.035 (1.003-1.035) Urine Protein Tracemg/dL (NEG,TRACE) Urine Glucose (UA) Negativemg/dL (NEGATIVE) Urine Ketones Tracemg/dL (NEGATIVE) Urine Occult Blood Large (NEGATIVE) Urine Nitrite Negative (NEGATIVE) Urine Bilirubin Moderate (NEGATIVE) Urine Ictotest Positive (Negative) Urine Urobilinogen Normalmg/dL (NORMAL) Urine Leukocyte Esterase Negative (NEGATIVE) Urine RBC 3-10/hpf (0-2) Urine WBC 11-50/hpf (0-5) Urine Epithelial Cells Many/hpf (NONE-MOD) Urine Crystals None seen (NONE SEEN) Urine Bacteria Moderate/hpf (NONE-FEW) Urine Hyaline Casts 5/20/lpf (NONE) Urine Granular Casts None seen (NONE SEEN) Urine Waxy Casts None seen (NONE SEEN) Urine Red Blood Cell Casts None seen (NONE SEEN) Urine White Blood Cell Casts None seen (NONE SEEN) Urine Mucus Present (None Seen) Urine Trichomonas None seen (NONE SEEN) Urine Yeast None (NONE SEEN) Urinalysis Comment None Urine Culture Reflexed Indicated Re-Eval/Medical Decision Med Decision/Clinical Course 41-year-old cyclic vomiting presents in her typical fashion. Improved after 3 L of fluid pain and nausea meds here. She has a appointment today at [facility] with gastroenterology which she intends to keep. Discharged now in stable and improved condition for follow-up with [facility]. She continues to have elevated creatinine as noted from her prior acute kidney injury. She fortunately did not delay as much as the last time and presented with less overt dehydration. Source of Hx: Old records Re-Evaluation/Progress : Time of Eval: 04:53 Patient Status: Condition resolved Re-Evaluation/Progress Note: Discussed lab results and plan to discharge. Patient is amenable to the plan. Return precautions given. All other questions addressed. Counseled Regarding: Diagnosis, Lab results, Need for follow-up, When/why to return to ED Discharge & Departure Primary Impression: Cyclic vomiting syndrome Additional Impressions: Acute kidney injury Severe dehydration Disposition: Home Discharge Condition All VS Reviewed: Yes Condition: Stable Patient Instructions: Dehydration (DC) Additional Instructions: Follow-up with your specialist today as planned. Follow up also with your family doctor. Return for any immediate issues. Good luck with your specialty evaluation. Referrals: Perla Oh DO (PCP) Scribe Attestation Portions of this note were transcribed by Hector Amaya. I, Dr. Hidalgo, personally performed the history, physical exam and medical decision-making; I reviewed and confirmed the accuracy of the information in the transcribed note. Signed by: Bhavesh Resendez. 01/31/2017 - 04:59 copies to: Perla Oh Christopher W MD Jan 31, 2017 00:17 HECTOR AMAYA Jan 31, 2017 00:25
[2017-01-31] MEDS ORDERED: 0.9% Sodium Chloride 1,000 ML IV ONE (00:26)
[2017-01-31] MEDS ORDERED: MetoCLOpramide 5 mg/mL 2 mL Inj IVPUSH ONE (00:30)
[2017-01-31] MEDS ORDERED: Pantoprazole 4 mg/mL 10 mL Inj IVPUSH ONE (00:30)
[2017-01-31] MEDS ORDERED: Ondansetron 2 mg/mL 2 mL Inj IVPUSH ONE (00:30)
[2017-01-31 01:22] LABS: BASOPHILS % (AUTO) 0.8 % (0-3); EOSINOPHILS % (AUTO) 5.6 % (0-5); MONOCYTES % (AUTO) 9.5 % (4-12); Mean Corpuscular Hemoglobin 28.7 pg (27.0-35.0); Mean Corpuscular Volume 84.8 fL (81-100); NEUTROPHILS % (AUTO) 59.8 % (40-74); Platelet Count 256 bil/L (150-400)
[2017-01-31 01:25] VITALS: BP 126/61; PULSE 86; RESP 22; O2SAT 97
[2017-01-31 01:31] LABS: INR 1.03 ratio
[2017-01-31 01:46] LABS: Magnesium 2.2 mg/dL (1.6-2.6)
[2017-01-31] MEDS ORDERED: HYDROmorphone 1 mg/mL Inj IVPUSH PRN (02:05)
[2017-01-31] MEDS: 0.9% Sodium Chloride 1,000 ML IV SCH ×2 (03:12→04:09)
[2017-01-31 03:28] LABS: APPEARANCE,URINE CLOUDY (CLEAR,HAZY); COLOR,URINE DARK YELLOW (YELLOW); PH,URINE 5.5 (5.0-8.0)
[2017-01-31 03:29] LABS: OCCULT BLOOD,URINE LARGE (NEGATIVE); UROBILINOGEN,URINE NORMAL (NORMAL)
[2017-01-31 03:30] LABS: ICTOTEST,URINE POSITIVE (Negative)
[2017-01-31] MEDS ORDERED: HepLOK Flush 100 unit/mL 5 mL Inj ONE (04:46)
[2017-01-31 05:05] VITALS: BP 113/69; PULSE 83; RESP 18; O2SAT 100
== END 2017-01-31 04:57 | disposition home or self-care (01) ==
LOC: SED 23:12
DX: G43.A0 Cyclical vomiting, in migraine, not intractable (principal); N17.9 Acute kidney failure, unspecified; E86.0 Dehydration; Z87.891 Personal history of nicotine dependence
CPT/HCPCS: 36415; 80053; 81000; 81025; 83605; 83690; 83735; 85025; 85610; 87086; 87088; 96361; 96374; 96375; 99285; J1170; J2405; J2765; J7030

== ENCOUNTER 2017-02-02 05:52 | Emergency (ER) | payer OTHER, MEDICARE ==
[~2017-02-02] VITALS: Ht 149.9 cm; Wt 43.3 kg
[2017-02-02 05:54] VITALS: BP 146/106; PULSE 117; RESP 18; O2SAT 98
--- NOTE | 2017-02-02 06:19 | ED.REPORT ---
HPI-NVD Date of Service Feb 02, 2017 ED Provider: Rhea Herbert MD History of Present Illness: multiple visits for cyclic vomitting. cachexic, port in place. Similar to all prior admits. Priovious treatment has included fluids and multiple combinations of antiemetics. She has an AFTAB report suggesting that narcotics be avoided in this setting. She also has a care plan from over a year ago that suggestes starting with 1mgIV dilaudid. Involved with [facility] for her recurrent symptoms. Pt is a 41 y.o. female with a hx of cyclical vomiting, followed by GI, who presents to the ED c/o vomiting. Pt reports associated abdominal pain and decreased PO intake. She denies diarrhea. Pt is a frequent ED visitor for her cyclical vomiting and abdominal pain, her most recent visits being 01/05, 01/12 , and 01/30. She states she was seen yesterday by GI and was prescribed Phenergan suppositories and Lorazepam. She states that she was told to come into the ED by GI if her vomiting and abdominal pain persisted. Nursing Notes Stated Complaint: VOMITING Chief Complaint: Female Abdominal Pain Nursing Notes Reviewed: Yes Allergies: Coded Allergies: capsaicin (Verified Allergy, Severe, Hives, 01/01/17) Scheduled Mirtazapine (Mirtazapine) 30 Mg Tablet 30 MG PO HS Multivit with Calcium,Iron,Min (Therapeutic M) 1 Each Tablet 1 EACH PO DAILY Nortriptyline (Nortriptyline) 25 Mg Capsule 25 MG PO HS Ondansetron ODT (Ondansetron ODT) 8 Mg Tab.rapdis 8 MG PO BID Ubidecarenone (Coenzyme Q-10) 200 Mg Capsule 200 MG PO DAILY Scheduled PRN ([Acetaminophen]) 325 MG TABLET 650 MG PO Q4H PRN PRN For Pain Clonazepam (Clonazepam) 2 Mg Tablet 2 MG PO HS PRN PRN For Sleep Hydromorphone Supp (Hydromorphone Supp) 3 Mg Supp.rect 3 MG [place] DAILY PRN PRN For Nausea May use up to 3x/month for nausea Ibuprofen (Ibuprofen) 800 Mg Tablet 800 MG PO TID PRN PRN For Pain Takes only 1x/month, not often Metoclopramide (Metoclopramide) 10 Mg/10 Ml Solution 10 MG PO QID PRN PRN For Nausea General Time Seen by MD: 06:16 Chief Complaint Vomiting Hx Obtained From: Patient Arrived By: Walk-in Onset Occurred: More than a week ago... 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 Alcohol Use: Denies alcohol use Drug Use: THC Other Social History: Ambulatory Status Independent Review of Systems Decreased PO intake GI: Reports: Abdominal pain, Nausea, Vomiting, Denies: Diarrhea Complete sys rev & neg: except as marked. Physical Exam Initial Vital Signs Vital Signs (First) Date Time Temp Pulse Resp B/P Pulse Ox O2 Delivery O2 Flow Rate FiO2 02/02/17 05:54 36.3 117 18 146/106 98 Room Air Initial VS: Reviewed Extremities: Vascular intact, Neuro intact Skin: Warm, Dry, No cyanosis Neurologic: Alert, Oriented, Nonfocal General/Constitutional: Awake, Alert, Well developed, Well hydrated, Well nourished, Not toxic appearing Behavior: Positive: Anxious, Tearful Pt is anxious and distraught which gets significantly worse when we discuss pain medication and there efficacy for cyclical vomiting. Abdomen: Atraumatic, Soft, Non-tender Non-surgical abdomen Respiratory / Chest: Atraumatic, Breath sounds NL, Breath sounds = bilat, No respiratory distress, No wheezing Cardiovascular: Heart rate NL, Regular rhythm, Heart sounds NL, No murmurs, Peripheral circulation NL Color / Condition: Positive: Rash present Rash / Lesion Notes: Chronic rash to upper abdomen from chronic heating pad use Re-Eval/Medical Decision Source of Hx: Old records Re-Evaluation/Progress : Time of Eval: 09:22 Patient Status: Condition improved Re-Evaluation/Progress Note: After 3 L of fluid and Zofran Benadryl Haldol Compazine she is feeling much better and requests "urgent discharge". We had a long discussion about not using narcotics for recurrent cyclic vomiting. She was frustrated in consistency with this through providers. She brought out her AFTAB report that about a year and a half old and indicates a milligram of IV Dilaudid as her first treatment. And I brought up the more recent one showing recommendations to avoid narcotics as much as possible. There is no rebound or guarding and no indication that this is a surgical abdomen. Due to very poor venous access after multiple attempts we were unable to obtain any blood for analysis. After 3 L of fluid she is voided she is declining any further attempts at blood draw to see what her renal function is. At this point she is stable and has all appropriate follow-up and will be discharged to home Counseled Regarding: Diagnosis, Lab results, Need for follow-up, When/why to return to ED Discharge & Departure Impression: Primary Impression: Cyclic vomiting syndrome Disposition: Home Discharge Condition All VS Reviewed: Yes Condition: Improved Additional Instructions: Thank you for entrusting us with your care today. You were seen here today for your cyclical vomiting. I recommend that you continue to follow-up with your GI doctor at . Make a follow-up appointment with your primary care provider to discuss further pain management. I hope you start to feel better soon and are able to enjoy your daughters birthday tomorrow! Referrals: Perla Oh DO (PCP) Bhavesh Attestation Portions of this note were transcribed by Jewels Selby. I, Dr. Herbert personally performed the history, physical exam and medical decision-making; I reviewed and confirmed the accuracy of the information in the transcribed note. Signed by: Bhavesh Connelly, 02/02/17 and 0000 copies to: Perla Oh Shawna L MD Feb 02, 2017 06:19 JEWELS SELBY Feb 02, 2017 06:24
[2017-02-02] MEDS ORDERED: 0.9% Sodium Chloride 1,000 ML IV ONE (07:17)
[2017-02-02] MEDS ORDERED: 0.9% Sodium Chloride 1,000 ML IV SCH (07:20)
[2017-02-02] MEDS ORDERED: ProchlorPERazine 5 mg/mL 2 mL Inj IVPUSH ONE (07:20)
[2017-02-02] MEDS ORDERED: Haloperidol 5 mg/mL Inj IVPUSH ONE (07:20)
[2017-02-02] MEDS ORDERED: Ondansetron 2 mg/mL 2 mL Inj IVPUSH ONE (07:20)
[2017-02-02 07:56] VITALS: BP 119/62; PULSE 73; RESP 16; O2SAT 100
[2017-02-02 08:01] VITALS: BP 149/95; PULSE 77; RESP 18; O2SAT 98
[2017-02-02] MEDS ORDERED: HepLOK Flush 100 unit/mL 5 mL Inj ONE (09:28)
[2017-02-02 09:42] VITALS: BP 130/75; PULSE 90; RESP 16; O2SAT 100
== END 2017-02-02 09:53 | disposition home or self-care (01) ==
LOC: SED 05:53
DX: G43.A0 Cyclical vomiting, in migraine, not intractable (principal); Z88.8 Allergy status to other drugs, medicaments and biological substances
CPT/HCPCS: 96361; 96374; 96375; 99284; J0780; J1200; J1630; J1642; J2405; J7030

== ENCOUNTER 2017-02-04 07:06 | Emergency (ER) | payer OTHER, MEDICARE ==
[~2017-02-04] VITALS: Ht 149.9 cm; Wt 43.6 kg
[2017-02-04 07:08] VITALS: BP 155/115; PULSE 121; RESP 24; O2SAT 98
[2017-02-04] MEDS ORDERED: 0.9% Sodium Chloride 1,000 ML IV ONE ×2 (07:20→07:27)
--- NOTE | 2017-02-04 07:20 | ED.REPORT ---
HPI-General Illness Date of Service Feb 04, 2017 ED Provider: Rhea Herbert MD The patient is a 41 year old female with history of cyclical vomiting syndrome with cachexia, multiple colonoscopies, acute kidney injury, and hypokalemia secondary to ongoing vomiting, who presents to the emergency department complaining of abdominal pain. She has been seen in the emergency department 6 times in the last month. She has repeated visits for cyclic vomiting. Her last visit was 2 days ago. She has a portacath in place and we were able to access this during her last visit. She got fluid and was upset when we declined any narcotics. We did get her nausea under control but did not her with her abdominal pain. The combination of 2 mg Haldol, 25 Benadryl, Phenergan , Zofran , IVF, and Protonix did provide some relief with her last visit. We were unable to draw any blood and she left before we had any results. She presents today with similar complaints stating she is unable to her abdominal pain or nausea under control. She is currently on her menstrual cycle. Nursing Notes Stated Complaint: VOMITING Chief Complaint: Female Abdominal Pain Nursing Notes Reviewed: Yes Allergies: Coded Allergies: capsaicin (Verified Allergy, Severe, Hives, 01/01/17) Scheduled Mirtazapine (Mirtazapine) 30 Mg Tablet 30 MG PO HS Multivit with Calcium,Iron,Min (Therapeutic M) 1 Each Tablet 1 EACH PO DAILY Nortriptyline (Nortriptyline) 25 Mg Capsule 25 MG PO HS Ondansetron ODT (Ondansetron ODT) 8 Mg Tab.rapdis 8 MG PO BID Ubidecarenone (Coenzyme Q-10) 200 Mg Capsule 200 MG PO DAILY Scheduled PRN ([Acetaminophen]) 325 MG TABLET 650 MG PO Q4H PRN PRN For Pain Clonazepam (Clonazepam) 2 Mg Tablet 2 MG PO HS PRN PRN For Sleep Clonazepam (Clonazepam) 1 Mg Tablet 1 MG PO DAILY PRN PRN For Anxiety Hydromorphone Supp (Hydromorphone Supp) 3 Mg Supp.rect 3 MG [place] DAILY PRN PRN For Nausea May use up to 3x/month for nausea Ibuprofen (Ibuprofen) 800 Mg Tablet 800 MG PO TID PRN PRN For Pain Takes only 1x/month, not often Metoclopramide (Metoclopramide) 10 Mg/10 Ml Solution 10 MG PO QID PRN PRN For Nausea General Time Seen by MD: 07:16 Chief Complaint Abdominal pain, Vomiting Hx Obtained From: Patient Arrived By: Walk-in Sudden in Onset?: No Onset Occurred: More than a week ago... 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 Alcohol Use: Denies alcohol use Drug Use: THC Other Social History: , Local resident Ambulatory Status Independent Review of Systems Full Review of Systems GI: Reports: Abdominal pain, Anorexia, Nausea, Vomiting Complete sys rev & neg: except as marked. Physical Exam Vital Signs Vital Signs Date Time Temp Pulse Resp B/P Pulse Ox O2 Delivery O2 Flow Rate FiO2 02/04/17 12:27 98 22 145/100 100 Room Air 02/04/17 09:25 97 18 119/74 100 Room Air 02/04/17 07:08 36.8 121 24 155/115 98 Room Air Initial VS: Reviewed Head / Eyes: Atraumatic, Normocephalic, PERRL ENT: Mucous membranes moist, Conjunctiva normal, No scleral icterus Neck: Supple, Non-tender, Full range of motion Respiratory: Breath sounds normal, Clear to auscultation, No respiratory distress Cardiovascular: Regular rate & rhythm, Heart sounds normal, Intact distal pulses Lymphatic: No lymphadenopathy Extremities: Vascular intact, Neuro intact, No swelling, No tenderness Skin: Warm, Dry, No cyanosis Neurologic: Alert, Oriented, Nonfocal Psychiatric: Mood/affect normal, Behavior normal, Normal thought content General/Constitutional: Awake, Alert Appearance / Presentation: Positive: Cachectic Appropriate. She is holdiner her knees to her abdomen rolling on the bed in pain. Abdomen: Soft, No guarding, No rebound Tenderness/Guarding/Rebound: Positive: Tender diffuse Not surgical Lower Extremity / Pelvis / MS: Neurologic intact, Vascular intact, No edema Interpretation & Diagnostics Lab Results Interpretation Result Diagram: 02/04/17 0845 02/04/17 0845 Test 02/04/17 08:45 White Blood Count 10.8th/mm3 (3.8-10.1) Red Blood Count 3.91mil/mm3 (3.90-5.20) Hemoglobin 11.1g/dL (12.0-15.6) Hematocrit 33.1% (35.0-46.0) Mean Corpuscular Volume 84.7fL (81-100) Mean Corpuscular Hemoglobin 28.4pg (27.0-35.0) Mean Corpuscular Hemoglobin Concent 33.5% (32.0-37.0) Red Cell Distribution Width 14.7% (12.3-15.4) Platelet Count 175bil/L (150-400) Neutrophils (%) (Auto) 79.8% (40-74) Lymphocytes (%) (Auto) 10.2% (14-46) Monocytes (%) (Auto) 7.0% (4-12) Eosinophils (%) (Auto) 1.9% (0-5) Basophils (%) (Auto) 0.5% (0-3) Sodium Level 141mEq/L (134-144) Potassium Level 2.6mEq/L (3.5-5.2) Chloride Level 101mEq/L (97-108) Carbon Dioxide Level 20mmol/L (18-29) Blood Urea Nitrogen 12mg/dL (6-24) Creatinine 0.69mg/dL (0.57-1.00) Estimat Glomerular Filtration Rate 133mL/min (>59) Glucose Level 76mg/dL (60-99) Calcium Level 8.7mg/dL (8.5-10.1) Magnesium Level 1.5mg/dL (1.6-2.6) Total Bilirubin 0.3mg/dL (0.0-1.2) Aspartate Amino Transf (AST/SGOT) 12U/L (0-50) Alanine Aminotransferase (ALT/SGPT) 9U/L (0-32) Alkaline Phosphatase 64U/L (25-150) Total Protein 5.9g/dL (6.4-8.4) Albumin 3.3g/dL (3.4-5.0) ECG Interpretation ECG Interpretation: EKG done for low potassium shows sinus rhythm with a rate of 93. Time: 09:59 Interpreted by: ED physician Re-Eval/Medical Decision Med Decision/Clinical Course recurrent presentations for cyclic vomiting. Little sleep over the weekend. Has phenergan supp and ODT zofran at home. Hypokakelmia, mild dehydration. Nausea controlled with zofran/phenergan/benadryl/haldol. Pain adressed with IV toradol and MS tylenol, narcotics avoided with success. IV and PO potassium replacement. Home, follow up with GI and PCP Source of Hx: Old records Time of Eval: 09:23 Re-Evaluation/Progress Note: Rechecked the patient. She has been able to sleep and is feeling much better. She has Phenergan suppositories and Zofran at home for nausea. Discussed plan for discharge. All questions were addressed. Will discharge after IVF and IV KCL. Time of Eval: 10:22 Re-Evaluation/Progress Note: The patient is requesting additional nausea medication. Counseled Regarding: Diagnosis, Lab results, Need for follow-up, When/why to return to ED Discharge & Departure Primary Impression: Cyclic vomiting syndrome Vomiting Intractability: intractable Nausea presence: with nausea Qualified Code: G43.A1 - Cyclical vomiting, intractable Additional Impressions: Hypokalemia Dehydration Ruled Out: Renal failure Disposition: Home Discharge Condition All VS Reviewed: Yes Condition: Stable Additional Instructions: Thank you for entrusting us with your care today. I am glad you are feeling better. Use the suppositories and/or Zofran as needed for your nausea and vomiting. I have given you some clonazepam to help with anxiety and see if that can get you past this acute flare of symptoms. This is a temporizing measure only. I hope you find some relief. 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 Please return to the emergency department for new or different symptoms. Referrals: Perla Oh DO (PCP) Scribe Attestation Portions of this note were transcribed by Nohemi Valenzuela. I, Dr. Herbert personally performed the history, physical exam and medical decision-making; I reviewed and confirmed the accuracy of the information in the transcribed note. Signed by: Bhavesh Partida, 02/04/2017 at 1130. copies to: Perla Oh Shawna L MD Feb 04, 2017 07:20 Nohemi Valenzuela Feb 04, 2017 07:29
[2017-02-04] MEDS ORDERED: Ondansetron 2 mg/mL 2 mL Inj IVPUSH ONE ×2 (07:30→10:25)
[2017-02-04] MEDS ORDERED: Pantoprazole 4 mg/mL 10 mL Inj IVPUSH ONE (07:30)
[2017-02-04] MEDS ORDERED: Haloperidol 5 mg/mL Inj IVPUSH ONE (07:30)
[2017-02-04] MEDS ORDERED: Promethazine Inj 50 MG in 0.9% Sodium Chloride-Pha MIX 100 ML IV ONE (07:30)
[2017-02-04 09:09] LABS: BASOPHILS % (AUTO) 0.5 % (0-3); EOSINOPHILS % (AUTO) 1.9 % (0-5); Mean Corpuscular Hemoglobin 28.4 pg (27.0-35.0); Mean Corpuscular Volume 84.7 fL (81-100); NEUTROPHILS % (AUTO) 79.8 % (40-74); Platelet Count 175 bil/L (150-400)
[2017-02-04 09:25] VITALS: BP 119/74; PULSE 97; RESP 18; O2SAT 100
[2017-02-04 09:33] LABS: Magnesium 1.5 mg/dL (1.6-2.6)
[2017-02-04] MEDS ORDERED: KCl 40 mEq/100 mL (CENTRAL) 40 MEQ in IV Premix 1 EACH IV ONE (09:45)
[2017-02-04] MEDS ORDERED: Potassium Chloride 20 mEq SR Tablet PO ONE (09:45)
[2017-02-04] MEDS ORDERED: KLO1T PO (11:26)
[2017-02-04] MEDS ORDERED: HepLOK Flush 100 unit/mL 5 mL Inj ONE (12:11)
[2017-02-04 12:27] VITALS: BP 145/100; PULSE 98; RESP 22; O2SAT 100
[2017-02-05] MEDS ORDERED: KEPP250T PO (06:28)
== END 2017-02-04 12:30 | disposition home or self-care (01) ==
LOC: SED 07:06
DX: G43.A1 Cyclical vomiting, in migraine, intractable (principal); E87.6 Hypokalemia; E86.0 Dehydration; Z88.8 Allergy status to other drugs, medicaments and biological substances
CPT/HCPCS: 36415; 80053; 83735; 85025; 93005; 96361; 96374; 96375; 96376; 99285; J1200; J1630; J1642; J1885; J2405; J2550; J3480; J7030

== ENCOUNTER 2017-02-05 02:29 | Emergency (ER) | payer OTHER, MEDICARE ==
[~2017-02-05] VITALS: Ht 149.9 cm; Wt 43.5 kg
[~2017-02-05 02:29] MED LIST changes: +KLO1T PO
[2017-02-05 02:33] VITALS: BP 158/113; PULSE 100; RESP 18; O2SAT 99
[2017-02-05] MEDS ORDERED: Haloperidol 5 mg/mL Inj IVPUSH ONE ×2 (02:50→03:55)
[2017-02-05] MEDS ORDERED: Ondansetron 2 mg/mL 2 mL Inj IVPUSH ONE (02:50)
[2017-02-05] MEDS ORDERED: Pantoprazole 4 mg/mL 10 mL Inj IVPUSH ONE (02:50)
--- NOTE | 2017-02-05 02:53 | ED.REPORT ---
HPI-Abd Pain F Under 40 Date of Service Feb 05, 2017 ED Provider: Tae Hidalgo MD The patient is a 41 year old female with history of cyclical vomiting syndrome with cachexia and port-a-cath who presents to the ED complaining of ongoing cyclical vomiting and lower abdominal pain since December 14. Patient states that her symptoms tonight are what she always experiences with her cyclical vomiting. She has been seen in the ED frequently for this complaint, with an ED visits on February 02 and . Her nausea was controlled prior to discharge on February 04, but she reported ongoing abdominal pain. Patient was also found to be hypokalemic and was given potassium. The patient is followed by GI at the [facility]. She has had multiple EGDs and colonoscopies, with no significant pathology for her cyclical vomiting identified. The patient called her physician at the [facility] tonight, but she has not yet heard from him. The patient states that she was recently admitted to the for a single night, but her GI physician had wanted her to be admitted for longer. Patient states that she has previously tried Imitrex for her symptoms, as a possible migraine-like treatment. She has not tried any of the anti-seizure medications in the past. The patient reports that her health was stable last summer and winter, until December of this year. Patient denies other symptoms. Nursing Notes Stated Complaint: VOMITING Chief Complaint: Female Abdominal Pain Nursing Notes Reviewed: Yes Allergies: Coded Allergies: capsaicin (Verified Allergy, Severe, Hives, 02/05/17) Scheduled Levetiracetam (Keppra) 250 Mg Tablet 250 MG PO BID Mirtazapine (Mirtazapine) 30 Mg Tablet 30 MG PO HS Multivit with Calcium,Iron,Min (Therapeutic M) 1 Each Tablet 1 EACH PO DAILY Nortriptyline (Nortriptyline) 25 Mg Capsule 25 MG PO HS Ondansetron ODT (Ondansetron ODT) 8 Mg Tab.rapdis 8 MG PO BID Ubidecarenone (Coenzyme Q-10) 200 Mg Capsule 200 MG PO DAILY Scheduled PRN ([Acetaminophen]) 325 MG TABLET 650 MG PO Q4H PRN PRN For Pain Clonazepam (Clonazepam) 2 Mg Tablet 2 MG PO HS PRN PRN For Sleep Clonazepam (Clonazepam) 1 Mg Tablet 1 MG PO DAILY PRN PRN For Anxiety Hydromorphone Supp (Hydromorphone Supp) 3 Mg Supp.rect 3 MG TX DAILY PRN PRN For Nausea May use up to 3x/month for nausea Ibuprofen (Ibuprofen) 800 Mg Tablet 800 MG PO TID PRN PRN For Pain Takes only 1x/month, not often Metoclopramide (Metoclopramide) 10 Mg/10 Ml Solution 10 MG PO QID PRN PRN For Nausea General Time Seen by MD: 02:47 Chief Complaint Abdominal pain, Nausea, Vomiting moderate Hx Obtained From: Patient Arrived By: Walk-in Sudden in Onset?: No Onset Occurred: More than a week ago... (since Dec 14) Symptom Duration: Since onset Progression since Onset: Waxes and wanes Location: : Diffuse Quality: Painful Severity: Current: Moderate Severity: Maximum: Moderate Recent Healthcare: Recent doctor visit Similar Sx Previous: Yes Past Medical History Past Medical History Notes: Last ED visits January 05,,,February 02 Last admission Jan 01 through January 03, 2017 Past Medical History Cyclical vomiting syndrome: cachexia, port-a-cath, seen by GI, multiple EGDs, colonoscopies, no significant pathology found Acute kidney injury secondary to dehydration, 12/2016 History of hypokalemia secondary to ongoing vomiting 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 Alcohol Use: Denies alcohol use Drug Use: THC Other Social History: Good social support, , Lives with children, Local resident Ambulatory Status Independent Review of Systems Constitutional: Denies: Chills, Fever GI: Reports: Abdominal pain, Nausea, Vomiting Complete sys rev & neg: except as marked. Physical Exam Initial Vital Signs Vital Signs (First) Date Time Temp Pulse Resp B/P Pulse Ox O2 Delivery O2 Flow Rate FiO2 02/05/17 02:33 36.4 100 18 158/113 99 Room Air Initial VS: Reviewed Head / Eyes: Atraumatic, Normocephalic, PERRL Neck: Supple, Full range of motion Extremities: No swelling, No tenderness Skin: Warm, Dry, No cyanosis Neurologic: Alert, Oriented, Nonfocal Psychiatric: Mood/affect normal, Behavior normal General/Constitutional: Awake, Alert Distress / Hydration: Positive: Distress mild Appearance / Presentation: Positive: Cachectic, Uncomfortable Respiratory / Chest: Breath sounds NL, Breath sounds = bilat, No respiratory distress, No rales, No rhonchi, No wheezing Cardiovascular: Heart rate NL, Regular rhythm, Heart sounds NL, No murmurs Abdomen: Soft, BS normoactive Tenderness/Guarding/Rebound: Positive: Tender diffuse (mild) Back: Not examined. ENT: Airway patent Mouth: Positive: Mucous membranes dry (mild) Interpretation & Diagnostics Lab Results Interpretation Result Diagram: 02/05/17 0320 02/05/17 0355 Test 02/05/17 02:47 02/05/17 03:20 02/05/17 03:55 Urine Color Yellow (YELLOW) Urine Appearance Clear (CLEAR,HAZY) Urine pH 6.0 (5.0-8.0) Urine Specific [place] 1.022 (1.003-1.035) Urine Protein Negativemg/dL (NEG,TRACE) Urine Glucose (UA) Negativemg/dL (NEGATIVE) Urine Ketones 15mg/dL (NEGATIVE) Urine Occult Blood Negative (NEGATIVE) Urine Nitrite Negative (NEGATIVE) Urine Bilirubin Moderate (NEGATIVE) Urine Ictotest Positive (Negative) Urine Urobilinogen Normalmg/dL (NORMAL) Urine Leukocyte Esterase Negative (NEGATIVE) Urine RBC 0-2/hpf (0-2) Urine WBC 0-5/hpf (0-5) Urine Epithelial Cells Occasional/hpf (NONE-MOD) Urine Crystals None seen (NONE SEEN) Urine Bacteria None/hpf (NONE-FEW) Urine Hyaline Casts None/lpf (NONE) Urine Granular Casts None seen (NONE SEEN) Urine Waxy Casts None seen (NONE SEEN) Urine Red Blood Cell Casts None seen (NONE SEEN) Urine White Blood Cell Casts None seen (NONE SEEN) Urine Mucus Present (None Seen) Urine Trichomonas None seen (NONE SEEN) Urine Yeast None (NONE SEEN) Urine Culture Reflexed Not indicated White Blood Count 9.1th/mm3 (3.8-10.1) Red Blood Count 3.84mil/mm3 (3.90-5.20) Hemoglobin 11.0g/dL (12.0-15.6) Hematocrit 33.2% (35.0-46.0) Mean Corpuscular Volume 86.5fL (81-100) Mean Corpuscular Hemoglobin 28.6pg (27.0-35.0) Mean Corpuscular Hemoglobin Concent 33.1% (32.0-37.0) Red Cell Distribution Width 15.0% (12.3-15.4) Platelet Count 108bil/L (150-400) Neutrophils (%) (Auto) 62.2% (40-74) Lymphocytes (%) (Auto) 17.0% (14-46) Monocytes (%) (Auto) 12.3% (4-12) Eosinophils (%) (Auto) 7.7% (0-5) Basophils (%) (Auto) 0.4% (0-3) Prothrombin Time 11.6sec (8.1-12.5) Prothromb Time International Ratio 1.08ratio Sodium Level 142mEq/L (134-144) Potassium Level 3.3mEq/L (3.5-5.2) Chloride Level 106mEq/L (97-108) Carbon Dioxide Level 20mmol/L (18-29) Blood Urea Nitrogen 10mg/dL (6-24) Creatinine 0.75mg/dL (0.57-1.00) Estimat Glomerular Filtration Rate 121mL/min (>59) Glucose Level 81mg/dL (60-99) Calcium Level 8.5mg/dL (8.5-10.1) Magnesium Level 1.7mg/dL (1.6-2.6) Total Bilirubin 0.2mg/dL (0.0-1.2) Aspartate Amino Transf (AST/SGOT) 12U/L (0-50) Alanine Aminotransferase (ALT/SGPT) 10U/L (0-32) Alkaline Phosphatase 69U/L (25-150) Total Protein 6.2g/dL (6.4-8.4) Albumin 3.4g/dL (3.4-5.0) Lipase 19U/L (13-60) Hold Russell Top Tube Received (Received) Re-Eval/Medical Decision Med Decision/Clinical Course Med Decision/Clinical Course: 41-year-old with repetitive presentations with apparent cyclic vomiting. She has had varying treatment including opioids on some occasions. The pattern of this suggests a migraine related cyclic vomiting, and I believe opioids should be avoided. She has had relief tonight with migraine cocktail meds and has not required opiates. She has had good relief with the migraine cocktail. I would suggest that we do not give her opiates in future presentations with this problem. I have provided her with a low dose of Keppra as prophylactic med for migraine/cyclic vomiting. Her clonazepam is problematic also. An alternative non-benzo should be sought. Her previous azotemia and acute kidney injury appears to resolve. Her potassium is slightly low but basically adequate. She is discharged now in stable condition. Source of Hx: Old records Re-Evaluation/Progress : Time of Eval: 03:50 Patient Status: Condition unchanged Re-Evaluation/Progress Note: Rechecked the patient, who reports ongoing pain. She states that she did not receive pain medication, which she did. Discussed the patient's pain guidelines with the patient. Narcotics are not indicated for cyclical vomiting. She will be given additional medication for her pain, nonnarcotic, as well as Keppra and dexamethasone. Counseled Regarding: Diagnosis, Lab results Discharge & Departure Shift Change Sign-Out Patient Care Transferred: No Laboratory Evaluation: Back, reviewed by me Primary Impression: Cyclic vomiting syndrome Vomiting Intractability: unspecified Nausea presence: with nausea Qualified Code: G43.A0 - Cyclical vomiting, not intractable Additional Impression: Abdominal migraine Disposition: Home Discharge Condition All VS Reviewed: Yes Condition: Improved Referrals: Perla Oh DO (PCP) Bhavesh Attestation Portions of this note were transcribed by Roxanna Leonard. I, Dr. Hidalgo personally performed the history, physical exam and medical decision-making; I reviewed and confirmed the accuracy of the information in the transcribed note. Signed by: Bhavesh Quevedo, 02/05/2017 0553 copies to: Perla Oh Christopher W MD Feb 05, 2017 02:53 Roxanna Leonard Feb 05, 2017 03:01
[2017-02-05] MEDS: 0.9% Sodium Chloride 1,000 ML IV SCH ×2 (03:33→05:16)
[2017-02-05 03:34] LABS: BASOPHILS % (AUTO) 0.4 % (0-3); EOSINOPHILS % (AUTO) 7.7 % (0-5); MONOCYTES % (AUTO) 12.3 % (4-12); Mean Corpuscular Hemoglobin 28.6 pg (27.0-35.0); Mean Corpuscular Volume 86.5 fL (81-100); NEUTROPHILS % (AUTO) 62.2 % (40-74); Platelet Count 108 bil/L (150-400)
[2017-02-05] MEDS ORDERED: Dexamethasone Inj 10 MG in 0.9% Sodium Chloride-Pha MIX 50 ML IV ONE (03:55)
[2017-02-05 04:17] LABS: INR 1.08 ratio
[2017-02-05 04:24] LABS: Magnesium 1.7 mg/dL (1.6-2.6)
[2017-02-05] MEDS ORDERED: Promethazine Inj 50 MG in 0.9% Sodium Chloride-Pha MIX 100 ML IV ONE (04:45)
[2017-02-05 06:23] LABS: APPEARANCE,URINE CLEAR (CLEAR,HAZY); COLOR,URINE YELLOW (YELLOW); OCCULT BLOOD,URINE NEGATIVE (NEGATIVE); UROBILINOGEN,URINE NORMAL (NORMAL)
[2017-02-05 06:24] LABS: ICTOTEST,URINE POSITIVE (Negative)
[2017-02-05] MEDS ORDERED: KEPP250T PO (06:28)
[2017-02-05 06:48] VITALS: BP 133/95; PULSE 89; RESP 16; O2SAT 99
== END 2017-02-05 06:28 | disposition home or self-care (01) ==
LOC: SED 02:29
DX: G43.A0 Cyclical vomiting, in migraine, not intractable (principal); G43.D0 Abdominal migraine, not intractable; Z88.8 Allergy status to other drugs, medicaments and biological substances
CPT/HCPCS: 36415; 80053; 81000; 81025; 83690; 83735; 85025; 85610; 96374; 96375; 99285; J1100; J1200; J1630; J1953; J2405; J7030

== ENCOUNTER 2017-02-05 21:05 | Emergency (ER) | payer OTHER, MEDICARE ==
[~2017-02-05 21:05] MED LIST changes: +KEPP250T PO
== END 2017-02-05 21:45 | disposition left against medical advice (07) ==
LOC: SED 21:05
DX: R11.10 Vomiting, unspecified (principal); Z53.21 Procedure and treatment not carried out due to patient leaving prior to being seen by health care provider

== ENCOUNTER 2017-02-06 01:19 | Emergency (ER) | payer OTHER, MEDICARE ==
[~2017-02-06] VITALS: Ht 149.9 cm; Wt 43.2 kg
[2017-02-06 01:40] VITALS: BP 167/100; PULSE 94; RESP 16; O2SAT 99
--- NOTE | 2017-02-06 01:52 | ED.REPORT ---
HPI-Abd Pain F 40 and Over Date of Service Feb 06, 2017 ED Provider: Mark Palm MD Pt is a 41 year old female with a history recurrent visits to the ED for cyclical vomiting who presents to the ED with complaints of cyclical vomiting and abdominal pain that started yesterday. She reports that she has an appointment with her GI doctor already scheduled. She has no other complaints, Nursing Notes Stated Complaint: VOMITING,MUSCLE CRAMPING Chief Complaint: Female Abdominal Pain Nursing Notes Reviewed: Yes Allergies: Coded Allergies: capsaicin (Verified Allergy, Severe, Hives, 02/05/17) Scheduled Levetiracetam (Keppra) 250 Mg Tablet 250 MG PO BID Mirtazapine (Mirtazapine) 30 Mg Tablet 30 MG PO HS Multivit with Calcium,Iron,Min (Therapeutic M) 1 Each Tablet 1 EACH PO DAILY Nortriptyline (Nortriptyline) 25 Mg Capsule 25 MG PO HS Ondansetron ODT (Ondansetron ODT) 8 Mg Tab.rapdis 8 MG PO BID Ubidecarenone (Coenzyme Q-10) 200 Mg Capsule 200 MG PO DAILY Scheduled PRN ([Acetaminophen]) 325 MG TABLET 650 MG PO Q4H PRN PRN For Pain Clonazepam (Clonazepam) 2 Mg Tablet 2 MG PO HS PRN PRN For Sleep Clonazepam (Clonazepam) 1 Mg Tablet 1 MG PO DAILY PRN PRN For Anxiety Hydromorphone Supp (Hydromorphone Supp) 3 Mg Supp.rect 3 MG IN DAILY PRN PRN For Nausea May use up to 3x/month for nausea Ibuprofen (Ibuprofen) 800 Mg Tablet 800 MG PO TID PRN PRN For Pain Takes only 1x/month, not often Metoclopramide (Metoclopramide) 10 Mg/10 Ml Solution 10 MG PO QID PRN PRN For Nausea General Time Seen by MD: 01:48 Chief Complaint Abdominal pain, Vomiting moderate Hx Obtained From: Patient Arrived By: Walk-in Sudden in Onset?: Yes Onset Occurred: 2 days ago Symptom Duration: Since onset Location: : Diffuse Quality: Painful Severity: Current: Mild Severity: Maximum: Moderate Similar Sx Previous: Yes Past Medical History Past Medical History Notes: Last ED visits January 05,,February 02 Last admission Jan 01 through January 03, 2017 Past Medical History Cyclical vomiting syndrome: cachexia, port-a-cath, seen by GI, multiple EGDs, colonoscopies, no significant pathology found Acute kidney injury secondary to dehydration, 12/2016 History of hypokalemia secondary to ongoing vomiting 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 Alcohol Use: Denies alcohol use Drug Use: THC Other Social History: Good social support, , Lives with children, Local resident Ambulatory Status Independent Review of Systems Constitutional: Denies: Chills, Fever, Malaise, Weakness - generalized Respiratory: Denies: Non-productive cough, Shortness of breath, Wheezing Cardiovascular: Denies: Chest pain, Syncope GI: Reports: Abdominal pain, Nausea, Vomiting, Denies: Constipation, Diarrhea Female: Denies: Dysuria, Flank pain, Urinary frequency, Urinary urgency Musculoskeletal: Denies: Back pain Complete sys rev & neg: except as marked. Physical Exam Vital Signs Vital Signs (First) Date Time Temp Pulse Resp B/P Pulse Ox O2 Delivery O2 Flow Rate FiO2 02/06/17 01:40 36.3 94 16 167/100 99 Room Air Initial VS: Reviewed Head / Eyes: Atraumatic, Normocephalic, PERRL ENT: Mucous membranes moist, Conjunctiva normal, No scleral icterus Neck: Supple, Non-tender, Full range of motion Skin: Warm, Dry, No cyanosis Neurologic: Alert, Oriented, Nonfocal General/Constitutional: Awake, Alert, Well appearing, Cooperative Respiratory / Chest: Atraumatic, Breath sounds NL, Breath sounds = bilat, No respiratory distress Cardiovascular: Heart rate NL, Regular rhythm, Heart sounds NL, No gallop Abdomen: Atraumatic, Soft, No guarding, No rebound Tenderness/Guarding/Rebound: Positive: Tender epigastric Back: Atraumatic, Inspection NL Re-Eval/Medical Decision Med Decision/Clinical Course 41-year-old female with cyclic vomiting syndrome presenting complaining of flare of her cyclic vomiting syndrome. She reports these are her typical symptoms. Reports last vomiting one hour ago. When I told her I would not give her any narcotics for this condition as this condition should not be treated with IV narcotics, she requested injections of antiemetics and discharged home. She declined labs are not IV. I did give her Toradol and Zofran and she reported feeling better and was discharged home with return precautions. Source of Hx: Old records Re-Evaluation/Progress : Time of Eval: 02:17 Re-Evaluation/Progress Note: Pt declined labs or an IV. Pt is rechecked and informed of the plan to discharge her at this time, she understands and agrees, all questions are addressed. Counseled Regarding: Diagnosis, Need for follow-up, When/why to return to ED Discharge & Departure Primary Impression: Intractable vomiting with nausea Vomiting type: cyclical vomiting Qualified Code: G43.A1 - Cyclical vomiting , intractable Disposition: Home Discharge Condition All VS Reviewed: Yes Condition: Stable Patient Instructions: Acute Nausea and Vomiting (ED) Additional Instructions: Take your at home medications as prescribed. Follow up with your GI specialist as planned. Return to the emergency department if you are unable to keep any fluids down or with any other worsening or concerning symptoms. Referrals: Perla Oh DO (PCP) Bhavesh Attestation Portions of this note were transcribed by Dr. Stevenson. I, Judith Kebede personally performed the history, physical exam and medical decision-making; I reviewed and confirmed the accuracy of the information in the transcribed note. Signed by: Bhavesh Murguia, 02/05 02:18 copies to: Perla Oh Ben M MD Feb 06, 2017 01:52 KHADAR KEBEDE Feb 06, 2017 02:00
[2017-02-06 02:21] VITALS: BP 150/90; PULSE 90; RESP 16; O2SAT 100
== END 2017-02-06 02:22 | disposition home or self-care (01) ==
LOC: SED 01:19
DX: G43.A1 Cyclical vomiting, in migraine, intractable (principal); Z88.6 Allergy status to analgesic agent
CPT/HCPCS: 96372; 99283; J1885

== ENCOUNTER 2017-05-24 17:10 | Emergency (ER) | payer OTHER, MEDICARE ==
[~2017-05-24] VITALS: Ht 149.9 cm; Wt 50.9 kg
[2017-05-24 17:13] VITALS: BP 145/108; PULSE 86; RESP 16; O2SAT 96
[2017-05-24] MEDS ORDERED: Promethazine Inj 25 MG in 0.9% Sodium Chloride 50 ML IV ONE (19:55)
[2017-05-24] MEDS ORDERED: 0.9% Sodium Chloride 1,000 ML IV ONE (19:55)
--- NOTE | 2017-05-24 19:55 | ED.REPORT ---
HPI-General Illness Date of Service May 24, 2017 ED Provider: Rosalio Loja MD A 41 year old female with history of migraines, cyclical vomiting syndrome with cachexia and port-a-cath presents to the ED complaining of a gradual onset headache that began yesterday morning. Patient reports headache is exactly the same as previous migraines. She describes the pain as an aching pain behind her eyebrows radiating to a shooting pain down the back of her head. Her current pain is a 9/10, persistent. Associated symptoms include nausea and vomiting. She was seen at Urgent Care this morning and given Toradol which provided no relief. She took aspirin and Excedrin with no relief. Patient denies any neck pain/stiffness, SOB, weakness/numbness, visual disturbances, difficulty breathing, fever, chills, chest pain, abdominal pain, constipation, diarrhea, hematochezia or hematuria. Nursing Notes Stated Complaint: MIGRAINE,NAUSEA Chief Complaint: Headache Nursing Notes Reviewed: Yes Allergies: Coded Allergies: capsaicin (Verified Allergy, Severe, Hives, 05/24/17) Scheduled Levetiracetam (Keppra) 250 Mg Tablet 250 MG PO BID Mirtazapine (Mirtazapine) 30 Mg Tablet 30 MG PO HS Multivit with Calcium,Iron,Min (Therapeutic M) 1 Each Tablet 1 EACH PO DAILY Nortriptyline (Nortriptyline) 25 Mg Capsule 25 MG PO HS Ondansetron ODT (Ondansetron ODT) 8 Mg Tab.rapdis 8 MG PO BID Ubidecarenone (Coenzyme Q-10) 200 Mg Capsule 200 MG PO DAILY Scheduled PRN ([Acetaminophen]) 325 MG TABLET 650 MG PO Q4H PRN PRN For Pain Clonazepam (Clonazepam) 2 Mg Tablet 2 MG PO HS PRN PRN For Sleep Clonazepam (Clonazepam) 1 Mg Tablet 1 MG PO DAILY PRN PRN For Anxiety Hydromorphone Supp (Hydromorphone Supp) 3 Mg Supp.rect 3 MG ID DAILY PRN PRN For Nausea May use up to 3x/month for nausea Ibuprofen (Ibuprofen) 800 Mg Tablet 800 MG PO TID PRN PRN For Pain Takes only 1x/month, not often Metoclopramide (Metoclopramide) 10 Mg/10 Ml Solution 10 MG PO QID PRN PRN For Nausea General Time Seen by MD: 19:37 Chief Complaint Headache Hx Obtained From: Patient Arrived By: Walk-in Sudden in Onset?: No Onset Occurred: Yesterday Symptom Duration: Since onset Location: : Head Quality: Aching, Sharp Radiation: : Does not radiate Severity: Current: Pain level 9 out of 10 Severity: Maximum: Pain level 9 out of 10 Associated with: Reports: Headache, Nausea, Vomiting, Denies: Abdominal pain, Chest pain, Fever, Numb extremities, Shortness of breath, Vision change, Weakness Pertinent Negative: Pt denies other symptoms Recent Healthcare: No recent hospitalization, Recent doctor visit Past Medical History Past Medical History 1. Cyclical vomiting syndrome: cachexia, port-a-cath, seen by GI 2. multiple EGDs, colonoscopies, no significant pathology found 3. Acute kidney injury secondary to dehydration, 12/2016 4. History of hypokalemia secondary to ongoing vomiting 5. 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 Migraines Past Surgical History Epistaxis surgery Breast augmentation Picc lines Reports: Appendectomy, , Tonsillectomy Family History Noncontributory Smoking History Never Smoker Social History Denies ongoing THC use. Alcohol Use: Denies alcohol use Drug Use: THC Other Social History: Good social support, , Lives with children, Local resident Ambulatory Status Independent Review of Systems dental pain Full Review of Systems Constitutional: Denies: Chills, Fever Respiratory: Denies: Shortness of breath Cardiovascular: Denies: Chest pain GI: Reports: Nausea, Vomiting, Denies: Abdominal pain, Constipation, Diarrhea, Hematochezia Female: Denies: Hematuria Musculoskeletal: Denies: Neck pain Neurologic: Reports: Headache, Denies: Numbness, Vision change, Weakness Complete sys rev & neg: except as marked. Physical Exam Nursing note and vitals reviewed. Constitutional: Well-developed, well-nourished. Not diaphoretic. Head: Normocephalic and atraumatic. Mouth/Throat: Oropharynx is clear and moist. No oropharyngeal exudate. Eyes: EOM are normal. Pupils are equal, round, and reactive to light. Neck: Supple, no tracheal deviation. Cardiovascular: Normal rate, regular rhythm. Equal and intact distal pulses throughout. Pulmonary/Chest: Effort normal and breath sounds normal. No respiratory distress. Abdominal: Soft. No distension. There is no tenderness, rebound, or guarding. Musculoskeletal: Range of motion grossly intact, moving all extremities. No edema or tenderness appreciated. Neurological: AOx3. Grossly nonfocal exam. Strength and sensation intact and equal to bilateral upper and lower extremities. Normal finger to nose testing. No pronator drift. Skin: Warm and dry, no rashes or pallor appreciated. Psychiatric: Appropriate mood and affect. Behavior appears normal. Vital Signs Vital Signs Date Time Temp Pulse Resp B/P Pulse Ox O2 Delivery O2 Flow Rate FiO2 05/24/17 22:59 91 16 133/91 98 Room Air 05/24/17 17:13 36.7 86 16 145/108 96 Room Air Interpretation & Diagnostics Lab Results Interpretation Test 05/24/17 21:01 Hold Urine Received (Received) Re-Eval/Medical Decision Med Decision/Clinical Course In summary, a 41-year-old female presenting to the ED for evaluation of a headache that started gradually yesterday morning, getting progressively worse, and described as exactly like previous migraine headaches. Differential includes SAH vs meningitis vs intracranial mass or hematoma vs tension/cluster/ migraine headache. Doubt SAH given that headache not sudden or maximal at onset , not described as 'worst of life', and normal neuro exam. Doubt meningitis given patient afebrile, not toxic appearing, no neck stiffness. Intracranial mass possible, though no focal neurologic findings and lack of other associated symptoms, clinical presentation make this less likely. Patient given phenergan, benadryl, and IVFs here in the ED w/ only improvement in symptoms. Subsequently given low dose ketamine, zofran, and 0.5 mg of dilaudid w/ marked improvement on reassessment. Given above, most notably headache exactly the same as previous migraines, as well as patient's clinical improvement in the ED, reasonable to d/c home w/ PCP followup in the next 1 to 2 days. Careful return precautions were discussed, and patient verbalized understanding and agreement w / the plan as stated. Denied further questions. Time of Eval: 22:48 Patient Status: Condition improved Re-Evaluation/Progress Note: Patient is re-evaluated. All questions about the treatment plan are addressed. She agrees to follow up with her PCP for further evaluation this week. Patient is agreeable to discharge at this time. Counseled Regarding: Diagnosis, Need for follow-up, When/why to return to ED Discharge & Departure Primary Impression: Headache Headache type: unspecified Headache chronicity pattern: acute headache Intractability: not intractable Qualified Code: R51 - Headache Additional Impression: Migraine Migraine type: unspecified Status migrainosus presence: without status migrainosus Intractability: not intractable Qualified Code: G43.909 - Migraine, unspecified, not intractable, without status migrainosus Disposition: Home Discharge Condition All VS Reviewed: Yes Condition: Improved Patient Instructions: Acute Headache (ED), Migraine Headache (ED) Additional Instructions: Thank you for trusting us with your care this evening. Your emergency department examination is reassuring; given that you've had this headache before and you're feeling better, I think it's reasonable to discharge you from the ED tonight. However, I would like you to please schedule a follow up appointment with your primary care physician tomorrow for a recheck. Take 1 Zofran every 8 hours as needed for nausea. Please return to the emergency department for any new or worsening symptoms including any nausea, vomiting, worsening headache, neck stiffness, visual disturbances, high fevers, shaking chills, or weakness. Referrals: Deisy May MD (PCP) Bhavesh Attestation Portions of this note were transcribed by Martir Diaz. I, Dr. Loja personally performed the history, physical exam and medical decision-making; I reviewed and confirmed the accuracy of the information in the transcribed note. Signed by: Bhavesh Espinal, 05/24/17 [id number]. copies to: Deisy May MD, William B MD May 24, 2017 19:55 MARTIR DIAZ May 24, 2017 20:00
[2017-05-24] MEDS ORDERED: Ondansetron 2 mg/mL 2 mL Inj IVPUSH ONE (21:40)
[2017-05-24] MEDS ORDERED: HYDROmorphone 0.5 mg/0.5 mL iSecure Syringe IVPUSH ONE (21:40)
[2017-05-24] MEDS ORDERED: Ketamine 10 mg/mL 20 mL Inj IV ONE (21:40)
[2017-05-24 22:59] VITALS: BP 133/91; PULSE 91; RESP 16; O2SAT 98
== END 2017-05-24 22:48 | disposition home or self-care (01) ==
LOC: SED 17:10
DX: G43.909 Migraine, unspecified, not intractable, without status migrainosus (principal); Z88.8 Allergy status to other drugs, medicaments and biological substances
CPT/HCPCS: 96361; 96374; 96375; 99284; J1170; J1200; J1885; J2405; J2550; J7030